=== PATIENT | male | born 1960 | race Caucasian/White ===

== ENCOUNTER → 2024-10-31 | Outpatient (CLI) | payer BC, MEDICARE, SELFPAY ==
[2024-10-31 16:16] LABS: Absolute Lymphocyte Count 1.81 X10^3/uL (0.83-4.51); Absolute Neutrophil Count 3.4 X10^3/uL (2.0-7.7); Basophil# 0.02 X10^3/uL; Basophil% 0.3 % (0-1); Eosinophils% 6.5 % (0-5); Hematocrit 47.7 % (40-54); Hemoglobin 16.2 g/dL (13.0-16.5); Lymphocyte # 1.81 X10^3/ul (0.83-4.51); Lymphocyte % 29.4 % (19-41); Mean Corpuscular Hgb 31.8 pg (27.0-32.0); Mean Corpuscular Volume 93.5 fL (80-94); Mean Platelet Vol. 10.7 fl (6.2-12.0); Monocyte# 0.56 X10^3/uL; Monocyte% 9.1 % (0-10); NRBC Flagged by Analyzer 0 % (0-5); Neutrophil # 3.36 X10^3/uL (2.7-7.7); Neutrophil % 54.5 % (47-70); Platelet Count 199 K/mm3 (150-450); RBC Distribution Width CV 12.6 % (11.6-14.6); RBC Distribution Width SD 43.8 fl (35.1-43.9); White Blood Count 6.2 K/mm3 (4.4-11.0)
[2024-10-31 17:03] LABS: ALB/GLOB Ratio 1.1 RATIO (0.9-2.4); AST(SGOT) 25 U/L (15-37); Alanine Aminotransfer ALT/SGPT 27 U/L (16-61); Albumin, Serum 3.9 g/dL (3.2-5.0); Alkaline Phosphatase 86 U/L (45-117); Anion Gap 6 (5-15); BUN 19 mg/dL (7-18); BUN/Creat Ratio 21.9 RATIO (10-20); Calcium,Total 9.3 mg/dL (8.5-10.1); Chloride 104 mmol/L (98-107); Creatinine, Serum 0.87 mg/dL (0.70-1.30); EST Glomerular Filtration Rate 94 mL/min (>60); Est Glom Filt Rate - Afr Amer 113 mL/min (>60); Globulin 3.7 g/dL (2.2-4.2); Glucose 91 mg/dL (74-106); Protein, Total 7.6 g/dL (6.4-8.2); Sodium Level 138 mmol/L (136-145)
[2024-10-31 17:33] LABS: Hepatitis C Antibody Non-Reactive (Nonreactive); Vitamin D,25 Hydroxy 41.8 ng/mL
[2024-10-31 19:36] LABS: Hemoglobin A1c 5.7 % (3.8-5.6)
[2024-11-01 11:05] LABS: Uric Acid 5.6 mg/dL (3.5-7.2)
== END | disposition home or self-care (01) ==
LOC: POLAB3 15:33
PROVIDERS: PCP Family Medicine Geriatric Medicine; Visit Provider Family Medicine Geriatric Medicine
DX: Z12.5 Encounter for screening for malignant neoplasm of prostate (principal); E78.5 Hyperlipidemia, unspecified; Z13.89 Encounter for screening for other disorder; E55.9 Vitamin D deficiency, unspecified; M10.9 Gout, unspecified
CPT/HCPCS: 36415; 80053; 82306; 83036; 84153; 84443; 84550; 85025; 86803; G0103

== ENCOUNTER → 2024-11-05 | Outpatient (CLI) | payer MEDICARE, SELFPAY ==
--- NOTE | 2024-11-05 13:35 | CPS ---
Order was for pre and post bronchodilator
== END | disposition home or self-care (01) ==
LOC: PSN 12:57
PROVIDERS: PCP Family Medicine Geriatric Medicine; Referring Provider Family Medicine Geriatric Medicine; Visit Provider Family Medicine Geriatric Medicine
DX: R06.02 Shortness of breath (principal); F12.20 Cannabis dependence, uncomplicated
CPT/HCPCS: 94060

== ENCOUNTER 2024-11-21 14:04 | Outpatient (CLI) | payer MEDICARE, SELFPAY ==
--- NOTE | 2024-11-21 14:10 | CT_ITS ---
PROCEDURE: LOW DOSE CT LUNG SCREENING REASON FOR EXAM: History of 15 Bong loads of THC. TECHNIQUE: Low Dose CT Lung Screening without contrast COMPARISON: None. FINDINGS: PULMONARY NODULES: (Only nodules >6mm are reported) Nodules described below are on series 1 unless otherwise specified. Pulmonary Nodules: No concerning pulmonary nodules. Hardware:None Lymph Nodes:No mediastinal hilar or axillary lymphadenopathy. Heart and Vasculature:Normal heart size. No pericardial effusion.Thoracic aorta and pulmonary arteries have normal contours; noncontrast technique limits evaluation. Coronary Artery Calcifications: Present Lungs and Airways: The lungs are normally expanded and clear. Pleura:No pleural effusion. No pneumothorax. Upper Abdomen:Visualized portions of the upper abdominal viscera are unremarkable. Bones:Degenerative changes of the thoracic spine. CT/Low Dose CT Lung Screening IMPRESSION: 1. BASED ON THE ACR LUNG RADS FOR THE MOST SUSPICIOUS NODULE (IF ANY) DESCRIBE D IN THIS REPORT, THE OVERALL LUNG RADS SCORE IS 1. 1 - NEGATIVE. RECOMMEND 12-MONTH SCREENING LDCT.. 2. SMOKING CESSATION COUNSELING IS RECOMMENDED IF THE PATIENT IS STILL SMOKING . 3. OTHER SIGNIFICANT FINDINGSNone. One or more dose reduction techniques were used (e.g., Automated exposure contr ol, adjustment of the mA and/or kV according to patient size, use of iterative reconstruction technique). The following information is provided for reference:Lung-RADS 202 Assessment C ategories. Additional information involving Lung-RADS is available at www.acr.org. 0-INCOMPLETE 1-NEGATIVE:No nodules or definitely benign nodules. Complete, central, popcorn , or centric ring calcifications OR fat containing 2-BENIGN APPEARANCE (based on imaging features or indolent behavior). Juxtaple ural nodule: < 10mm AND solid; smooth margins; oval, entiform, or triangular shape Solid nodule: <6mm at baseline or new< 4mm Part solid Nodule: < 6mm total mean diameter at baseline Nonsolid nodule:(GGN) < 30mm OR >=30mm stable or slowly growing Airway nodule, subsegmental at baseline, new, or stable Category 3 nodule stabl e or decreased in size at 6-month follow-up CT or Category 3 or 4A nodules that resolve on follow-up OR category 4B findings prov en to be benign following diagnotic work up. 3 - Probably Benign (Based on imaging features or behavior) Solid Nodule: >= 6 to <8mm at baseline OR new 4 to <6mm Part-solid nodule: >= 6mm toal mean diam. with solid component <6mm at baseline OR new < 6mm total mean diam. Non-solid nodule: GGN >= 30mm at baseline or new Atypical pulmonary cyst: Growing cystic component (mean diam.) of thick-walled cyst Category 4A nodule stable or decreased in size at 3-month follow-up CT (excl.ai rway). 4A - Suspicious Solid nodule: >=8 to < 15mm at baseline OR growing < 8mm OR new 6 to < 8mm Part solid nodule: >= 6mm total mean diam. w/ solid component >=6mm to < 8mm at baseline OR new or growing < 4mm solid component Airway nodule, segmental or more proximal at baseline or new Atypical pulmonary cyst: Thick-walled OR multilocular at baseline OR becomes mu ltilocular 4B - Very Suspicious Airway nodule, segmental or more proximal, and stable or growing Solid nodule: >= 15mm at baseline OR new or growing >= 8mm Part solid nodule: Solid component >= 8mm OR new or growing >= 4mm solid compon ent Atypical pulmonary cyst: Thick-walled with growing wall thickness/nodularity OR Growing multilocular (mean diam.) OR Multilocular with increased loculation or new/increased opacity Slow-growing solid or part solid nodule w/ growth over multiple screening exams 4X - Very Suspicious Category 3 or 4 nodules with additional features that increase the suspicion fo r lung cancer. S - Clinically Significant or potentially significant findings (non-lung cancer ) 3. OTHER SIGNIFICANT FINDINGSNone. One or more dose reduction techniques were used (e.g., Automated exposure contr ol, adjustment of the mA and/or kV according to patient size, use of iterative reconstruction technique). The following information is provided for reference:Lung-RADS 2021 Assessment C ategories. Additional information involving Lung-RADS is available at www.acr.org. 0-INCOMPLETE 1-NEGATIVE:No nodules or definitely benign nodules. Complete, central, popcorn , or centric ring calcifications OR fat containing 2-BENIGN APPEARANCE (based on imaging features or indolent behavior). Juxtaple ural nodule: < 10mm AND solid; smooth margins; oval, entiform, or triangular shape Solid nodule: <6mm at baseline or new< 4mm Part solid Nodule: < 6mm total mean diameter at baseline Nonsolid nodule:(GGN) < 30mm OR >=30mm stable or slowly growing Airway nodule, subsegmental at baseline, new, or stable Category 3 nodule stabl e or decreased in size at 6-month follow-up CT or Category 3 or 4A nodules that resolve on follow-up OR category 4B findings prov en to be benign following diagnotic work up. 3 - Probably Benign (Based on imaging features or behavior) Solid Nodule: >= 6 to <8mm at baseline OR new 4 to <6mm Part-solid nodule: >= 6mm toal mean diam. with solid component <6mm at baseline OR new < 6mm total mean diam. Non-solid nodule: GGN >= 30mm at baseline or new Atypical pulmonary cyst: Growing cystic component (mean diam.) of thick-walled cyst Category 4A nodule stable or decreased in size at 3-month follow-up CT (excl.ai rway). 4A - Suspicious Solid nodule: >=8 to < 15mm at baseline OR growing < 8mm OR new 6 to < 8mm Part solid nodule: >= 6mm total mean diam. w/ solid component >=6mm to < 8mm at baseline OR new or growing < 4mm solid component Airway nodule, segmental or more proximal at baseline or new Atypical pulmonary cyst: Thick-walled OR multilocular at baseline OR becomes mu ltilocular 4B - Very Suspicious Airway nodule, segmental or more proximal, and stable or growing Solid nodule: >= 15mm at baseline OR new or growing >= 8mm Part solid nodule: Solid component >= 8mm OR new or growing >= 4mm solid compon ent Atypical pulmonary cyst: Thick-walled with growing wall thickness/nodularity OR Growing multilocular (mean diam.) OR Multilocular with increased loculation or new/increased opacity Slow-growing solid or part solid nodule w/ growth over multiple screening exams 4X - Very Suspicious Category 3 or 4 nodules with additional features that increase the suspicion fo r lung cancer. S - Clinically Significant or potentially significant findings (non-lung cancer ) Reading Location: [id number]
== END 2024-11-21 23:59 | disposition home or self-care (01) ==
LOC: CT 14:07
PROVIDERS: PCP Family Medicine Geriatric Medicine; Referring Provider Family Medicine Geriatric Medicine; Visit Provider Family Medicine Geriatric Medicine
DX: F12.20 Cannabis dependence, uncomplicated (principal); I71.40 Abdominal aortic aneurysm, without rupture, unspecified
CPT/HCPCS: 71271

== ENCOUNTER 2024-12-03 08:58 | Outpatient (CLI) | payer MEDICARE, SELFPAY ==
--- NOTE | 2024-12-03 09:02 | AAAS_ITS ---
Reason For Study Reason For Study: AAA Aorta Measurements Aorta Doppler Measurements Proximal aorta measures2.07x2.07cm. in cross-sectional axis.Peak systolic flow velocities within the proximal aorta Proximal aorta measures1.85cm. in longitudinal axis. measure 92.2 cm/sec. Mid aorta measures2.81x2.81cm. in cross-sectional axis. Peak systolic flow velocities within the mid aorta measure Mid aorta measures2.77cm. in longitudinal axis. 171.4 cm/sec. Distal aorta measures3.50x3.50cm. in cross-sectional axis. Peak systolic flow velocities within the distal aorta Distal aorta measures3.25cm. in longitudinal axis. measure 20.0 cm/sec. Left Iliac Artery Left iliac artery measures 1.66 cm. in the longitudinal axis. Left iliac artery measures 1.78x1.88 cm. in the cross- sectional axis. Peak systolic velocity in the left iliac artery measures 51.6 cm/sec. Right Iliac Artery Right iliac artery measures 1.88 cm. in the longitudinal axis. Right iliac artery measures 2.14x2.14 cm. in the cross- sectional axis. Peak systolic velocity in the right iliac artery measures 64.8 cm/sec. Procedure Aorta IVC Iliac vasculature or bypass grafts 63410. Exam performed in department. VL/AAA Screening Interpretation Summary Aorta patent, 3.5 cm aneurysm present Right iliac artery patent, 2.14 cm aneurysm present Left iliac artery patent, 1.88 cm aneurysm present Ordering Physician: Larry Morel Chi Referring Physician: Larry Morel Chi Performed By: Carter Mendez RVT and Student
== END 2024-12-03 23:59 | disposition home or self-care (01) ==
LOC: CVS 08:59
PROVIDERS: PCP Family Medicine Geriatric Medicine; Referring Provider Family Medicine Geriatric Medicine; Visit Provider Family Medicine Geriatric Medicine
DX: I71.40 Abdominal aortic aneurysm, without rupture, unspecified (principal); F12.20 Cannabis dependence, uncomplicated
CPT/HCPCS: 76706

== ENCOUNTER 2025-03-26 12:50 | Day surgery (SDC) | payer MEDICARE, SELFPAY ==
[2025-03-26] VITALS (8 sets, daily range): BP systolic 110–136; BP diastolic 70–98; PULSE 52–74; RESP 16–18; TEMP 36.2–36.3; O2SAT 96–98; BMI 34.0
--- NOTE | 2025-03-26 13:11 | PCM.HP.STD ---
[facility] - General General Date of Admission: 03/26/25 Date of Service: 03/26/25 Chief Complaint: Screening colonoscopy HPI Narrative HOMER NIX, is a 65 M who presents today for screening colonoscopy. He had aortic duplex screening on 12/03/24 which demonstrated infrarenal AAA 3.5 cm, right iliac artery aneurysm 2.14 cm, and left iliac artery aneurysm 1.88cm. He denies any new/persistent abdominal, pelvic, groin, back, flank, or chest pain. He denies any claudication, nocturnal/rest pain in the lower extremities, or nonhealing leg ulcerations. He had a colonoscopy approximately 3 years ago for history of adenomatous polyps. He takes aspirin on a daily basis. His last dose was approximately 7 days ago. [facility] Medical History Wears glasses Arthritis High cholesterol Marijuana use History of edema Non-smoker Iliac artery aneurysm AAA (abdominal aortic aneurysm) Gout Tetrahydrocannabinol (THC) use disorder, moderate, dependence Hyperlipidemia Type 2 diabetes mellitus Hx of colonic polyp Home Medications ?Medication ?Instructions ?Recorded ?Last Taken ?Type RSVPreF3 antigen-AS01E 0.5 ml IM ONCE 01/03/25 Unknown History adjuvant(PF) 120 mcg/0.5 mL IM suspension, kit (Arexvy (PF)) amoxicillin 875 mg-potassium 1 tab PO Q12H 01/03/25 Unknown History clavulanate 125 mg tablet phentermine 37.5 mg capsule 37.5 mg PO QDAY 01/03/25 Unknown History pneumo 21-grant conj-dip crm(PF) 0.5 0.5 ml IM ONCE 01/03/25 Unknown History mL IM syringe (Capvaxive) aspirin 81 mg tablet 81 mg PO DAILY 03/21/25 03/19/25 History multivitamin (Daily Multi-Vitamin 1 tab PO DAILY 03/21/25 Unknown History tablet) Allergy/AdvReac Type Severity Reaction Status Date / Time No Known Allergies Allergy Verified 03/26/25 13:09 Family History Mother Breast cancer Diverticulitis Surgical History History of lateral meniscus repair of left knee History of ankle surgery History of oral surgery Hx of colonoscopy Social History household members: family current occupational status: retired Smoking Status: Never smoker alcohol intake: former substance use type: marijuana ROS Constitutional Constitutional: Denies fatigue, fever(s), poor appetite, weight gain or weight loss Gastrointestinal Gastrointestinal: Denies belching, bloating, change in bowel habits, change in stool character, chewing difficulty, coffee ground emesis, constipation, cramping, diarrhea, dyspepsia, dysphagia, early satiety, excessive flatus, fecal incontinence, heartburn, hematemesis, hematochezia, hemorrhoids, loose stools, melena, nausea, odynophagia, rectal bleeding, tenesmus, vomiting or weight changes Physical Exam Const alert, oriented x3, no apparent distress and healthy appearing General Appearance: cooperative GI normal to inspection, nondistended, normoactive bowel sounds, soft to palpation, non-tender and non-distended Percussion: normal to percussion Rectal Exam: deferred Assessment & Plan Assessment/Plan (1) Encounter for screening for malignant neoplasm of colon: PLAN: 65-year-old comes in for surveillance colonoscopy. He will undergo colonoscopy today. He was explained alternatives, risk, benefits including not withstanding bleeding, infection, sepsis, perforation, need for brain surgery . He will have an ASA of 3.
[2025-03-26] MEDS: Lactated Ringers 1,000 ML 15 ML IV (13:21)
--- NOTE | 2025-03-26 13:34 | PRE.ANES_ITS ---
ASA Classification* ASA Classification ASA Classification: 3 Assessment & Plan Anesthesia* Anesthesia Assessment Anesthesia Assessment: Discussed sedation and/or anesthesia options, risks, benefits, and alternatives with patient/parents/legal guardian/POA. Questions invited. The patient/parents/legal guardian/POA seems to understand and agrees to proceed with anesthesia plan. Reviewed the physical assessment, medical history, allergy history and patient home medications list prior to surgery/procedure/anesthetic and documented any changes. Performed airway and anesthesia risk assessments. Anesthesia Type Anesthesia Type: MAC History Source History Obtained from:: Patient and Chart Anesthesia Focused Assessment* Temperature: 97.1 F Pulse Rate: 61 Blood Pressure: 136/82 Respiratory Rate: 18 Pulse Ox: 96 Oxygen Delivery Method: Room Air Airway Assessment Mouth opens: >3 cm Mallampati Score: I Teeth Condition: Intact and Implants (all intact) Neck Range of motion (ROM): Full ROM Labs Anesthesia Preop lab: CBC WBC 6.2 K/mm3 (4.4-11.0) 10/31/24 15:10/31/24 RBC 5.10 M/mm3 (4.6-6.2) 10/31/24 15:10/31/24 Hgb 16.2 g/dL (13.0-16.5) 10/31/24 15:10/31/24 Hct 47.7 % (40-54) 10/31/24 15:33 10/31/24 Plt Count 199 K/mm3 (150-450) 10/31/24 15:10/31/24 CHEMISTRY Potassium 4.0 mmol/L (3.5-5.1) 10/31/24 15:10/31/24 Sodium 138 mmol/L (136-145) 10/31/24 15:33 10/31/24 BUN 19 mg/dL (7-18) H 10/31/24 15:10/31/24 Creatinine 0.87 mg/dL (0.70-1.30) 10/31/24 15:10/31/24 Glucose 91 mg/dL (74-106) 10/31/24 15:33 10/31/24 TSH 2.480 uIU/mL (0.358-3.740) 10/31/24 15:10/04 COAG Pre-Assessment Diagnosis/Proposed Procedure Planned Operative Procedure(s): CSCOPE Anesthesia History Anesthesia History - charter pilot: Anesthesia History - charter pilot Hx Hospitalization No 03/21/25 15:12 Any Problems With Anesthesia No 03/21/25 15:12 Cholinesterase deficiency No 03/21/25 15:12 You/Your Family Experience No 03/21/25 15:12 fever (hyperthermia) with Relationship Recent Exposure to Contagious No 03/26/25 13:10 Disease Does patient have nerve No 03/21/25 15:12 stimulator Patient instructed to have device shut off --Does patient have Pacemaker No 03/26/25 13:10 or ICD? When Was Last Pacemaker Check QUESTION #4 FULL TEXT: You/Your Family Experience fever (hyperthermia) with Anesthesia Last Oral Intake Last Oral intake: Last Oral Intake NPO since 10:30 03/26/25 13:10 Meds taken in AM with sips of No 03/26/25 13:10 water? Meds patient instructed to take am of surgery PONV PONV - charter pilot: PONV - charter pilot Female No 03/21/25 15:12 HX of Motion Sickness No 03/21/25 15:12 HX of N/V After Surgery No 03/21/25 15:12 Non-Smoker Yes 03/21/25 15:12 Duration of Surgery greater No 03/21/25 15:12 than 60 minutes Number of Risk Factors 1 03/21/25 15:12 PONV Score Low Risk 03/21/25 15:12 Height & Weight Height & Weight: Anesthesia: Height & Weight Height 6 ft 1 in 03/26/25 13:10 Weight: 117 kg 03/26/25 13:10 Body Mass Index (BMI) 34.0 03/26/25 13:10 Respiratory Assessment Respiratory Assessment - charter pilot: Respiratory Tract Infection Hx - charter pilot Hx Respiratory Tract Infection No 03/21/25 15:12 STOP Sleep Apnea STOP Sleep Apnea - charter pilot: STOP Sleep Apnea - charter pilot Hx Hypertension No 03/21/25 15:12 Hx Sleep Apnea Yes 03/21/25 15:12 CPAP Yes 03/21/25 15:12 BIPAP No 03/21/25 15:12 Do you snore loudly (louder than talking or can be heard Do you often feel tired/ fatigued/ sleepy during daytime? Has anyone observed you stop breathing during sleep? STOP Results Positive 03/21/25 15:12 QUESTION #5 FULL TEXT : Do you snore loudly (louder than talking or can be heard through closed doors)? 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 Specify any problems Hx of Preganancy in last 3 N/A 03/21/25 15:12 Months Nurse Filling Out Transfusion NBUCHER 03/21/25 15:12 & Questions: Date: 03/21/25 03/21/25 15:12 Time: 15:13 03/21/25 15:12 Patient unable to answer at this time (ie. confused, unrespo /Reproduction History /Reproductive History - charter pilot: /Reproductive Hx- charter pilot Hx Now No 03/21/25 15:12 Gestational Age (in weeks): EDC: Hx Hx Para Hx Section SAB No 03/21/25 15:12 Active Medications Active Medications: Current Medications Generic Name Dose Route Start Last Admin Trade Name Freq PRN Reason Stop Dose Admin Lactated Ringer's 1,000 mls @ 15 mls/hr 03/26/25 13:00 03/26/25 13:21 IV 15 mls/hr .Q48H SRINIVAS Administration PFSH Medical History Wears glasses Arthritis High cholesterol Marijuana use History of edema Non-smoker Iliac artery aneurysm AAA (abdominal aortic aneurysm) Gout Tetrahydrocannabinol (THC) use disorder, moderate, dependence Hyperlipidemia Type 2 diabetes mellitus Hx of colonic polyp Home Medications ?Medication ?Instructions ?Recorded ?Last Taken ?Type RSVPreF3 antigen-AS01E 0.5 ml IM ONCE 01/03/25 Unkn own History adjuvant(PF) 120 mcg/0.5 mL IM suspension, kit (Arexvy (PF)) amoxicillin 875 mg-potassium 1 tab PO Q12H 01/03/25 Un known History clavulanate 125 mg tablet phentermine 37.5 mg capsule 37.5 mg PO QDAY 01/03/25 U nknown History pneumo 21-grant conj-dip crm(PF) 0.5 0.5 ml IM ONCE 12/25 Unknown History mL IM syringe (Capvaxive) aspirin 81 mg tablet 81 mg PO DAILY 03/21/2503/03 History multivitamin (Daily Multi-Vitamin 1 tab PO DAILY 03/21 Unknown History tablet) Allergy/AdvReac Type Severity Reaction Status Date / Time No Known Allergies Allergy Verified 03/26/25 13:09 Family History Mother Breast cancer Diverticulitis Surgical History History of lateral meniscus repair of left knee History of ankle surgery History of oral surgery Hx of colonoscopy Social History household members: family current occupational status: retired Smoking Status: Never smoker alcohol intake: former substance use type: marijuana Review of Systems (Anesthesia) ROS Narrative System reviewed and no additional complaints, except as documented.
[2025-03-26 13:45] LABS: Bedside Glucose 102 mg/dL (74-106)
--- NOTE | 2025-03-26 13:45 | COLBX_PTH ---
PATIENT: HOMER NIX LOC: EN U#:[id number] AGE/SX: 65/M ROOM: RE03/26/[address]: Dr. Vasyl Ventura DO : 1960 BED: DIS: 03/26/2025 SPEC #: [id number] RECD: 03/26/25 16:03 STATUS: NOAH EDA #: [id number] FANI: 03/26/25 13:[address]: Vasyl Ventura DEPT: SURGICAL PATHOLOGY RECD BY: Brain Solomon ENTERED: 03/27/25 09:30 SP TYPE: COLON BX HÉCTOR DR: Dr. Larry Morel MD Tissues: A - Sigmoid colon biopsy Procedures: Surgery Specimen Level IV HEADER OPERATION: Colonoscopy PRE-OP DIAGNOSIS: Encounter for screening for malignant neoplasm of colon TISSUE SUBMITTED: A- Sigmoid polyp biopsy MICROSCOPIC DIAGNOSIS A. Sigmoid, polyp, colon, biopsy: - Hyperplastic polyp. MICROSCOPIC DESCRIPTION Slides are reviewed. GROSS DESCRIPTION A. Received in fixative is one container labeled with the patient's name and designated Sigmoid polyp biopsy. The specimen consists of multiple irregular fragments of light beckwith soft tissue that in aggregate measure 0.2 to 0.3 cm. The specimen is totally submitted in one cassette. EMILY/ 03/27/2025 CPT:63872
--- NOTE | 2025-03-26 14:33 | OP.COLON_ITS ---
Patient Name: Silvio Lewis Procedure Date: 03/26/2025 2:03 PM Date of : 1960 Age: 65 Procedure: Colonoscopy Indications: High risk colon cancer surveillance: Personal history of colonic polyps Providers: Vasyl Ventura DO Referring MD: Larry Morel MD Medicines: Monitored Anesthesia Care Patient Profile: This is a 65 year old male. Refer to note in patient chart for documentation of history and physical. Last Colonoscopy: more than 3 years ago. Complications: No immediate complications. Procedure: Pre-Anesthesia Assessment: - Prior to the procedure, a History and Physical was performed, and patient medications and allergies were reviewed. The patient is competent. The risks and benefits of the procedure and the sedation options and risks were discussed with the patient. All questions were answered and informed consent was obtained. Patient identification and proposed procedure were verified in the pre-procedure area. Mental Status Examination: alert and oriented. Airway Examination: normal oropharyngeal airway and neck mobility. Respiratory Examination: clear to auscultation. CV Examination: normal. Prophylactic Antibiotics: The patient does not require prophylactic antibiotics. Prior Anticoagulants: The patient has taken no anticoagulant or antiplatelet agents except for NSAID medication. ASA Grade Assessment: II - A patient with mild systemic disease. After reviewing the risks and benefits, the patient was deemed in satisfactory condition to undergo the procedure. The anesthesia plan was to use monitored anesthesia care (MAC). Immediately prior to administration of medications, the patient was re-assessed for adequacy to receive sedatives. The heart rate, respiratory rate, oxygen saturations, blood pressure, adequacy of pulmonary ventilation, and response to care were monitored throughout the procedure. The physical status of the patient was re-assessed after the procedure. After I obtained informed consent, the scope was passed under direct vision. Throughout the procedure, the patient's blood pressure, pulse, and oxygen saturations were monitored continuously. The Colonoscope was introduced through the anus and advanced to the cecum, identified by appendiceal orifice and ileocecal valve. The colonoscopy was performed without difficulty. The patient tolerated the procedure well. The quality of the bowel preparation was adequate. The ileocecal valve, appendiceal orifice, and rectum were photographed. Scope In: 2:12:25 PM Scope Withdrawal Time 0 hours 12 minutes 46 seconds Scope Out: 2:29:47 PM Total Procedure Duration Time 0 hours 17 minutes 22 seconds Findings: The perianal and digital rectal examinations were normal. Three sessile polyps were found in the sigmoid colon. The polyps were 6 mm in size. These polyps were removed with a jumbo cold forceps. Resection and retrieval were complete. Verification of patient identification for the specimen was done. Estimated blood loss was minimal. Multiple small and large-mouthed diverticula were found in the recto-sigmoid colon and sigmoid colon. The exam was otherwise without abnormality on direct and retroflexion views. Impression: - Three 6 mm polyps in the sigmoid colon, removed with a jumbo cold forceps. Resected and retrieved. - Diverticulosis in the recto-sigmoid colon and in the sigmoid colon. - The examination was otherwise normal on direct and retroflexion views. Recommendation: - Discharge patient to home. - Resume previous diet. - Continue present medications. - Await pathology results. - Repeat colonoscopy in 5 years for surveillance. Procedure Code(s): --- Professional --- 39686, Colonoscopy, flexible; with biopsy, single or multiple CPT copyright 2021 [employer]. All rights reserved. The codes documented in this report are preliminary and upon pool technician review may be revised to meet current compliance requirements. Vsayl Ventura DO 03/26/2025 2:33:21 PM This report has been signed electronically. Number of Addenda: 0 Note Initiated On: 03/26/2025 2:03 PM
--- NOTE | 2025-03-26 14:33 | OP.CCLET_ITS ---
03/26/2025 Larry Morel MD [address] [place] [address] Re : Colonoscopy procedure for Silvio Lewis Dear Dr. Morel This procedure was performed on Wednesday, March 26, 2025. My impressions and recommendations are as follows: Impressions : - Three 6 mm polyps in the sigmoid colon, removed with a jumbo cold forceps. Resected and retrieved. - Diverticulosis in the recto-sigmoid colon and in the sigmoid colon. - The examination was otherwise normal on direct and retroflexion views. Recommendations : - Discharge patient to home. - Resume previous diet. - Continue present medications. - Await pathology results. - Repeat colonoscopy in 5 years for surveillance. My findings are described in the full procedure note, which is enclosed. If I can be of further assistance, please feel free to contact me at . Sincerely, Vasyl Friend, 03/26/2025 2:33:21 PM This report has been signed electronically.
--- NOTE | 2025-03-26 14:40 | PCM.POST.ANE ---
Anesthesia: Postop Eval I Current Vital Signs Temperature: 97.3 F Pulse Rate: 57 Blood Pressure: 110/70 Respiratory Rate: 16 Pulse Ox: 96 Oxygen Delivery Method: Room Air Assessment Airway patent: Yes Spontaneous unlabored respirations: Yes Mental status: Asleep nausea: No Vomiting: No Anesthesia Complication: No Fluid Hydration Crystalloid volume administer (ml): 600 Total IV fluid infused: 600 Progress Note Anesthesia document: Postop Eval 1 completed: Yes
--- NOTE | 2025-03-26 17:08 | PCM.POSTANE2 ---
Anesthesia Postop Eval I Sum Postop Eval Completion status Anesthesia document: Postop Eval 1 completed: Yes Anesthesia Postop Eval I Summary Anesthesia Postop Eval I Summary: Anesthesia Postop Eval I: Assessment Summary Airway patent Yes 03/26/25 14:41 [email or web address] Spontaneous unlabored Yes 03/26/25 14:41 [email or web address] respirations Mental status Asleep 03/26/25 14:41 [email or web address] nausea No 03/26/25 14:41 [email or web address] Vomiting No 03/26/25 14:41 [email or web address] Anesthesia Postop Eval I: Fluid Summary Crystalloid volume administer 600 03/26/25 14:41 [email or web address] (ml) Colloids volume administered ( ml) Blood Product volume administered (ml) Total IV fluid infused 600 03/26/25 14:41 [email or web address] Anesthesia Postop Eval I: Summary Notes Anesthesia Complication No 03/26/25 14:41 [email or web address] Anesthesia Complication Comment: Post-operative progress note Anesthesia: Postop Eval II Evaluation Mental status: Awake and Calm Pain Level: 0 nausea: No Vomiting: No Complications Anesthesia Complication: No
== END 2025-03-26 16:28 | disposition home or self-care (01) ==
LOC: EN 12:51 → AC 12:52
PROVIDERS: PCP Family Medicine Geriatric Medicine; Referring Provider Family Medicine Geriatric Medicine; Visit Provider Internal Medicine Gastroenterology
PROC: 0DJD8ZZ Inspection of Lower Intestinal Tract, Via Natural or Artificial Opening Endoscopic (ICD-10-PCS; CPT 45378; principal; 2025-03-26 13:40)
DX: Z12.11 Encounter for screening for malignant neoplasm of colon (principal); E11.9 Type 2 diabetes mellitus without complications; K57.30 Diverticulosis of large intestine without perforation or abscess without bleeding; Z86.0100 Personal history of colon polyps, unspecified; E78.00 Pure hypercholesterolemia, unspecified; Z79.82 Long term (current) use of aspirin; K63.5 Polyp of colon
CPT/HCPCS: 45380; 82962; 88305; J2405

== ENCOUNTER → 2025-06-05 | Outpatient (CLI) | payer MEDICARE, SELFPAY ==
[2025-06-05 14:32] LABS: Hematocrit 45.2 % (40-54); Hemoglobin 15.3 g/dL (13.0-16.5); Immature Granulocytes Count 0.020 X10^3/uL (0.0-0.0); Mean Corp Hgb Conc 33.8 g/dL (32-36); Mean Corpuscular Volume 94.6 fL (80-94); Mean Platelet Vol. 10.4 fl (6.2-12.0); NRBC Flagged by Analyzer 0 % (0-5); Platelet Count 180 K/mm3 (150-450); RBC Distribution Width CV 12.6 % (11.6-14.6); RBC Distribution Width SD 43.7 fl (35.1-43.9); Red Blood Count 4.78 M/mm3 (4.6-6.2); White Blood Count 5.8 K/mm3 (4.4-11.0)
[2025-06-05 16:17] LABS: BUN 18 mg/dL (4-19); Glucose 119 mg/dL (70-99)
[2025-06-05 16:18] LABS: AST(SGOT) 27 U/L (<=37); Alanine Aminotransfer ALT/SGPT 20 U/L (<=46); Albumin, Serum 4.1 g/dL (3.4-4.8); Alkaline Phosphatase 74 U/L (40-129); Anion Gap 12 (5-15); BUN/Creat Ratio 21.9 RATIO (10-20); Calcium,Total 9.3 mg/dL (7.6-11.0); Carbon Dioxide 24.6 mmol/L (21.0-32.0); Chloride 105 mmol/L (98-108); Globulin 2.8 g/dL (2.2-4.2); Potassium 4.1 mmol/L (3.3-5.1); Vitamin D,25 Hydroxy 29.1 ng/mL (30-100)
[2025-06-05 22:11] LABS: Xtra Tube Kwok EXTRA TUBE
== END | disposition home or self-care (01) ==
LOC: POLAB3 14:10
PROVIDERS: PCP Family Medicine Geriatric Medicine; Visit Provider Family Medicine Geriatric Medicine
DX: E03.9 Hypothyroidism, unspecified (principal); R53.83 Other fatigue; E55.9 Vitamin D deficiency, unspecified
CPT/HCPCS: 36415; 80053; 82306; 84443; 85025

== ENCOUNTER → 2025-07-26 | Outpatient (CLI) | payer MEDICARE, SELFPAY ==
--- NOTE | 2025-07-24 14:21 | LES_PTH ---
PATIENT: HOMER NIX LOC: [facility] U#:[id number] AGE/SX: 65/M ROOM: RE07/26/[address]: Dr. Fili Barahona MD : 1960 BED: DIS: 07/26/2025 SPEC #: [id number] RECD: 07/25/25 17:26 STATUS: NOAH REAllen #: [id number] FANI: 07/24/25 14:[address]: Fili Barahona DEPT: SURGICAL PATHOLOGY RECD BY: Brain Solomon ENTERED: 07/26/25 10:18 SP TYPE: Lesion OTHR DR: Dr. Larry Morel MD Tissues: A - Skin of nose, NOS Procedures: Surgery Specimen Level IV HEADER OPERATION: Biopsy PRE-OP DIAGNOSIS: Lesion of nose TISSUE SUBMITTED: A- Lesion of nose MICROSCOPIC DIAGNOSIS A. Skin, nose, biopsy: - Basal cell carcinoma. MICROSCOPIC DESCRIPTION Slides are reviewed. GROSS DESCRIPTION A. Received in formalin labeled with the patient's name and date of is a 0.4 x 0.2 x 0.1 cm beckwith to light brown, somewhat granular, irregular fragment of apparent skin. A definitive resection margin is not grossly appreciated. Entirely submitted in 1 cassette. [place] 07/26/2025PT:[id number]
--- OUTSIDE RECORDS SUMMARY | 2025-07-26 06:57 | XMS RPT_ITS | CCD ---
Author Organization [facility] Care Team Providers Care Gospel Singer Name Role Phone Adriel REYES, Dr. Larry Comer Primary Care Provider Adriel REYES, Dr. Larry Comer Attending Provider Adriel REYES, Dr. Larry Comer Referring Provider Radha Barton Attending Provider Unavailable Lucio REYES, Dr. Adams Attending Provider 1([facility])[phone] Adriel REYES, Dr. Larry Comer Primary Care Provider Adriel REYES, Dr. Larry Comer Attending Provider Adriel REYES, Dr. Larry Comer Referring Provider Irlanda Rodriguez Attending Provider 1([facility])[phone] Dr[address] Vasyl Ventura DO Attending Provider Dr. Vasyl Ventura DO Other Provider Adriel REYES, Dr. Larry Comer Primary Care Provider Adriel REYES, Dr. Larry Comer Referring Provider Adriel REYES, Dr. Larry Comer Attending Provider Adriel, Larry Chi Primary Care Unavailable Bryan Valdes Attending Unavailable Adriel, Larry Chi Referring Unavailable Joshua Tobin Attending Unavailable Adriel, Larry Chi Primary Care Unavailable Adriel, Larry Chi Primary Care Unavailable Vasyl Ventura Consulting Unavailable Vasyl Ventura Attending Unavailable Adriel, Larry Chi Referring Unavailable Adriel, Larry Chi Primary Care Unavailable Adriel, Larry Chi Attending Unavailable Adriel, Larry Chi Attending Unavailable Adriel, Larry Chi Primary Care Unavailable Adriel, Larry Chi Attending Unavailable Adriel, Larry Chi Attending Unavailable Adriel, Larry Chi Referring Unavailable Adriel, Larry Chi Primary Care Unavailable Adriel, Larry Chi Referring Unavailable Adriel, Larry Chi Primary Care Unavailable Adriel, Larry Chi Attending Unavailable Adriel, Larry Chi Referring Unavailable Adriel, Larry Chi Primary Care Unavailable Vasyl Ventura Attending Unavailable Adriel, Larry Chi Referring Unavailable Irlanda Rascon Attending Unavailable Adriel, Larry Chi Primary Care Unavailable Adriel, Larry Chi Primary Care Unavailable Radha Barton Attending Unavailable Medications Current Medications Medication Drug Class(es) Dates Sig (Normalized) Sig (Original) aspirin 81 mg oral tablet (2 sources) Platelet Aggregation Inhibitor, Nonsteroidal Anti-inflammatory Drug Start: 03-21-2025 take 1 tablet by mouth once daily Aspirin 81 mg tablet Active 81 mg PO DAILY March 21, 2025 12:00am Multivitamin (Daily Multi-Vitamin) tablet (2 sources) Start: 03-21-2025 Multivitamin (Daily Multi-Vitamin) tablet Active 1 {tbl} PO DAILY March 21, 2025 12:00am Completed/Discontinued Medications Medication Drug Class(es) Dates Sig (Normalized) Sig (Original) amoxicillin 875 mg / clavulanate 125 mg oral tablet (2 sources) Penicillin-class Antibacterial Start: 01-03-2025 Amoxicillin-Pot Clavulanate 875-125 mg tablet Discontinued 1 {tbl} PO Q12H January 03, 2025 12:00am phentermine hydrochloride 37.5 mg oral capsule (2 sources) Sympathomimetic Amine Anorectic Start: 01-03-2025 take 1 capsule by mouth once daily 30 minutes after breakfast Phentermine 37.5 mg capsule Discontinued 37.5 mg PO daily January 03, 2025 12:00am must administer 30 minutes before or 1-2 hours after breakfast Pneumo 21-Montse Conj-Dip Crm(Pf) (2 sources) Start: 01-03-2025 Pneumo 21-Montse Conj-Dip Crm(Pf) (Capvaxive) 0.5 mL syringe Discontinued 0.5 mL IM ONCE January 03, 2025 12:00am as a single dose Rsvpref3 Antigen-As01e (Pf) (Arexvy (Pf)) 120 mcg/0.5 mL suspension for reconstitution (2 sources) Start: 01-03-2025 inject 1 mL by intramuscular injection once Rsvpref3 Antigen-As01e (Pf) (Arexvy (Pf)) 120 mcg/0.5 mL suspension for reconstitution Discontinued 0.5 mL IM ONCE January 03, 2025 12:00am as a single dose Semaglutide (Weight Loss) (3 sources) Start: 11-08-2024 End: 01-04-2025 Semaglutide (Weight Loss) (Wegovy) 0.25 mg/0.5 mL pen injector Discontinued 0.25 mg SC EVERY WEEK November 08, 2024 1:00am January 04, 2025 1:48pm administer weeks 1 through 4 of therapy Start: 11-08-2024 Semaglutide (W eight Loss) (Wegovy) 0.25 mg/0.5 mL pen injector Active 0.25 mg SC EVERY WEEK November 08, 2024 1:00am administer weeks 1 through 4 of therapy Problems Active Problems Problem Classification Problem Date Documented Da te Episodic/Chronic Aortic; peripheral; and visceral artery aneurysms (9 sources) Aneurysm of infrarenal abdominal aorta ; Translations: [Infrarenal abdominal aortic aneurysm (AAA) without rupture] 01-04-2025 Chronic Other screening for suspected conditions (not mental disorders or infectious disease) (8 sources) Patient encounter status; Translations: [Encounter for screening for malignant neoplasm of colon] Onset: 11-20-2024 11-07-2024 Episodic Substance-related disorders (1 source) Cannabis dependence, uncomplicated; Translations: [Cannabis dependence, uncomplicated] Onset: 12-18-2024 Chronic Thyroid disorders (1 source) Hypothyroidism, unspecified; Translations: [Hypothyroidism, unspecified] Onset: 06-12-2025 Chronic Unclassified (1 source) Abdominal aortic aneurysm, without rupture, unspecified; Translations: [Abdominal aortic aneurysm, without rupture, unspecified] Onset: 01-24-2025 Past or Other Problems Problem Classification Problem Date Documented Da te Episodic/Chronic Other lower respiratory disease (1 source) Shortness of breath; Translations: [Shortness of breath] Onset: 12-05-2024 Episodic Results Test Name Value Interpretation Reference Range Facil y Absolute lymphocyte countOrd ered By: Larry Morel on 06-05-2025 Lymphocytes Auto (Unsp spec) [#/Vol] 1.76 10*3/uL 0.83-4.51 [facility] Absolute neutrophil countOrd ered By: Larry Morel on 06-05-2025 Neutrophils (Bld) [#/Vol] 3.1 10*3/uL 2.0-7.7 [facility] Anion gap in Serum or Plasma Ordered By: Larry Adriel on 06-05-2025 Anion gap [Moles/Vol] 12 mmol/L 5-15 [facility] Automated lymphocyte count a s percentage of total leukocytesOrdered By: Larry Adriel on 06-05-2025 Lymphocytes/100 WBC Auto (Unsp spec) 30.5 % - [facility] BUN/creatinine ratioOrdered By: Larry Morel on 06-05-2025 Urea nitrogen/Creatinine [Mass ratio] 21.9 mg/mg High 10- [facility] Basophil percentageOrdered B y: Larry Adriel on 06-05-2025 Basophils/100 WBC (Bld) 0.5 % 0-1 [facility] Bilirubin, totalOrdered By: Larry Morel on 06-05-2025 Bilirubin [Mass/Vol] 0.39 mg/dL 0.00-1.30 [facility] CBC W/Diff, Automatedon Absolute Lymph 1.76 X10 3/uL Normal 0.83-4.51 [facility] Comment on above: Performed By: #### L 506.1001, L500.4050, L100.0100, L501.9520 #### [facility] [address] [place], [address] Absolute Neut 3.1 X10 3/uL Normal 2.0-7.7 [facility] Comment on above: Performed By: #### L 506.1001, L500.4050, L100.0100, L501.9520 #### [facility] [address] [place], [address] Basophils/100 WBC (Bld) 0.5 % Normal 0-1 [facility] Comment on above: Performed By: #### L 506.1001, L500.4050, L100.0100, L501.9520 #### [facility] [address] [place], [address] Eosinophils/100 WBC (Bld) 6.2 % High 0-5 [facility] Comment on above: Performed By: #### L 506.1001, L500.4050, L100.0100, L501.9520 #### [facility] [address] [place], [address] Erythrocyte distribution width (RBC) [Ratio] 12.6 % Normal 11.6-14.6 [facility] Comment on above: Performed By: #### L 506.1001, L500.4050, L100.0100, L501.9520 #### [facility] [address] [place], [address] Hematocrit (Bld) [Volume fraction] 45.2 % Normal 40-54 [facility] Comment on above: Performed By: #### L 506.1001, L500.4050, L100.0100, [id number] #### [facility] [address] [place], [address] Hemoglobin (Bld) [Mass/Vol] 15.3 g/dL Normal 13.0-16.5 [facility] Comment on above: Performed By: #### L 506.1001, L500.4050, L100.0100, L501.9520 #### [facility] [address] [place], [address] IG% 0.300 Normal 0.0-0.9 [facility] Comment on above: Result Comment: IG% - Immature Granulocytes (promyelocytes, myelocytes and metamyelocytes) > 1% indicates that a LEFT SHIFT is Present. Performed By: #### L 506.1001, L500.4050, L100.0100, L501.9520 #### [facility] [address] [place], [address] Lymphocytes/100 WBC (Bld) 30.5 % Normal 19-41 [facility] Comment on above: Performed By: #### L 506.1001, L500.4050, L100.0100, [id number] #### [facility] [address] [place], [address] MCH (RBC) [Entitic mass] 32.0 pg Normal 27.0-32.0 [facility] Comment on above: Performed By: #### L 506.1001, L500.4050, L100.0100, L501.9520 #### [facility] [address] [place], [address] MCHC (RBC) [Mass/Vol] 33.8 g/dL Normal 32-36 [facility] Comment on above: Performed By: #### L 506.1001, L500.4050, L100.0100, L501.9520 #### [facility] [address] [place], [address] MCV (RBC) [Entitic vol] 94.6 fL High 80-94 [facility] Comment on above: Performed By: #### L 506.1001, L500.4050, L100.0100, L501.9520 #### [facility] [address] [place], [address] Monocytes/100 WBC (Bld) 8.8 % Normal 0-10 [facility] Comment on above: Performed By: #### L 506.1001, L500.4050, L100.0100, L501.9520 #### [facility] [address] [place], [address] Neutrophils/100 WBC (Bld) 53.7 % Normal 47-70 [facility] Comment on above: Performed By: #### L 506.1001, L500.4050, L100.0100, [id number] #### [facility] [address] [place], [address] Nucleated RBC (Bld) [#/Vol] 0 10*3/uL Normal 0-5 [facility] Comment on above: Performed By: #### L 506.1001, L500.4050, L100.0100, L501.9520 #### [facility] [address] [place], [address] Platelet mean volume (Bld) [Entitic vol] 10.4 fL Normal 6.2-12.0 [facility] Comment on above: Performed By: #### L 506.1001, L500.4050, L100.0100, L501.9520 #### [facility] [address] [place], [address] Platelets (Bld) [#/Vol] 180 10*3/uL Normal 150-450 [facility] Comment on above: Performed By: #### L 506.1001, L500.4050, L100.0100, [id number] #### [facility] [address] [place], [address] RBC (Bld) [#/Vol] 4.78 10*6/uL Normal 4.6-6.2 [facility] Comment on above: Performed By: #### L 506.1001, L500.4050, L100.0100, [id number] #### [facility] [address] [place], [address] RDW SD 43.7 fl Normal 35.1-43.9 [facility] Comment on above: Performed By: #### L 506.1001, L500.4050, L100.0100, [id number] #### [facility] [address] [place], [address] WBC (Bld) [#/Vol] 5.8 10*3/uL Normal 4.4-11.0 [facility] Comment on above: Performed By: #### L 506.1001, L500.4050, L100.0100, L501.9520 #### [facility] [address] [place], [address] Carbon dioxide, total [Moles /volume] in Central venous bloodOrdered By: Larry Morel on 06-05-2025 CO2 [Moles/Vol] 24.6 mmol/L 21.0-32.0 [facility] Chloride assayOrdered By: Coy Morel on 06-05-2025 Chloride [Moles/Vol] 105 mmol/L 98-108 [facility] Comprehensive Metabolic Prof ilon 06-05-2025 Albumin [Mass/Vol] 4.1 g/dL Normal 3.4-4.8 [facility] Comment on above: Performed By: #### L 506.1001, L500.4050, L100.0100, L501.9520 #### [facility] [address] [place], [address] Albumin/Globulin [Mass ratio] 1.4 {ratio} Normal 0.9-2.4 [facility] Comment on above: Performed By: #### L 506.1001, L500.4050, L100.0100, L501.9520 #### [facility] [address] [place], [address] ALK PHOS 74 U/L Normal 40-129 [facility] Comment on above: Performed By: #### L 506.1001, L500.4050, L100.0100, L501.9520 #### [facility] [address] [place], [address] ALT [Catalytic activity/Vol] 20 U/L Normal <=46 [facility] Comment on above: Performed By: #### L 506.1001, L500.4050, L100.0100, L501.9520 #### [facility] [address] [place], [address] AST [Catalytic activity/Vol] 27 U/L Normal <=37 [facility] Comment on above: Performed By: #### L 506.1001, L500.4050, L100.0100, L501.9520 #### [facility] [address] [place], [address] Bilirubin [Mass/Vol] 0.39 mg/dL Normal 0.00-1.30 [facility] Comment on above: Performed By: #### L 506.1001, L500.4050, L100.0100, L501.9520 #### [facility] [address] [place], [address] BUN/CRE 21.9 RATIO High 10-20 [facility] Comment on above: Performed By: #### L 506.1001, L500.4050, L100.0100, L501.9520 #### [facility] [address] [place], [address] Calcium [Mass/Vol] 9.3 mg/dL Normal 7.6-11.0 [facility] Comment on above: Performed By: #### L 506.1001, L500.4050, L100.0100, L501.9520 #### [facility] [address] [place], [address] Chloride [Moles/Vol] 105 mmol/L Normal 98-108 [facility] Comment on above: Performed By: #### L 506.1001, L500.4050, L100.0100, L501.9520 #### [facility] [address] [place], [address] CO2 [Moles/Vol] 24.6 mmol/L Normal 21.0-32.0 [facility] Comment on above: Performed By: #### L 506.1001, L500.4050, L100.0100, L501.9520 #### [facility] [address] [place], [address] GAP 12 Normal 5-15 [facility] Comment on above: Performed By: #### L 506.1001, L500.4050, L100.0100, L501.9520 #### [facility] [address] [place], [address] GFR/1.73 sq M.predicted among non-blacks MDRD (S/P/Bld) [Vol rate/Area] 97 mL/min/{1.73_m2} Normal >60 [facility] Comment on above: Result Comment: mL/m in/1.73m2 CKD-EPI Creatinine Equation (2020) Performed By: #### L 506.1001, L500.4050, L100.0100, L501.9520 #### [facility] [address] [place], [address] Globulin (S) [Mass/Vol] 2.8 g/dL Normal 2.2-4.2 [facility] Comment on above: Performed By: #### L 506.1001, L500.4050, L100.0100, L501.9520 #### [facility] [address] [place], [address] Potassium [Moles/Vol] 4.1 mmol/L Normal 3.3-5.1 [facility] Comment on above: Performed By: #### L 506.1001, L500.4050, L100.0100, L501.9520 #### [facility] [address] [place], [address] Sodium [Moles/Vol] 141 mmol/L Normal 133-145 [facility] Comment on above: Performed By: #### L 506.1001, L500.4050, L100.0100, L501.9520 #### [facility] [address] [place], [address] T PROT 6.9 g/dL Normal 5.9-8.4 [facility] Comment on above: Performed By: #### L 506.1001, L500.4050, L100.0100, L501.9520 #### [facility] [address] [place], [address] Creatinine [Mass/Vol] 0.81 mg/dL Normal 0.70-1.20 [facility] Comment on above: Performed By: #### L 506.1001, L500.4050, L100.0100, L501.9520 #### [facility] [address] [place], [address] Glucose [Mass/Vol] 119 mg/dL High 70-99 [facility] Comment on above: Performed By: #### L 506.1001, L500.4050, L100.0100, L501.9520 #### [facility] [address] [place], [address] Urea nitrogen [Mass/Vol] 18 mg/dL Normal 4-19 [facility] Comment on above: Performed By: #### L 506.1001, L500.4050, L100.0100, L501.9520 #### [facility] [address] [place], [address] Eosinophil percentageOrdered By: Larry Morel on 06-05-2025 Eosinophils/100 WBC (Bld) 6.2 % High 0-5 [facility] Erythrocyte distribution wid th ratioOrdered By: Larry Morel on 06-05-2025 Erythrocyte distribution width (RBC) [Ratio] 12.6 % 11.6-14.6 [facility] Erythrocyte distribution wid th standard deviationOrdered By: Larry Adriel on 06-05-2025 Erythrocyte distribution width (RBC) [Ratio] 43.7 fl 35.1-43.9 [facility] Glomerular filtration rate ( GFR) estimation/1.73 sq m using serum, plasma, or whole bOrdered By: Larry Morel on 06-05-2025 GFR/1.73 sq M.predicted among non-blacks MDRD (S/P/Bld) [Vol rate/Area] 97 mL/min/{1.73_m2} >60 [facility] Comment on above: mL/min/1.73m2 CKD-EP I Creatinine Equation (2020) Hematocrit Auto (Bld) [Volum e fraction]Ordered By: Larry Morel on 06-05-2025 Hematocrit (Bld) [Volume fraction] 45.2 % 40-54 [facility] Hemoglobin measurementOrdere d By: Larry Morel on 06-05-2025 Hemoglobin (Bld) [Mass/Vol] 15.3 g/dL 13.0-16.5 [facility] Immature granulocytes/100 WB C Auto (Bld)Ordered By: Larry Morel on 06-05-2025 Immature granulocytes/100 WBC (Bld) 0.300 % 0.0-0.9 [facility] Comment on above: IG% - Immature Granu locytes (promyelocytes, myelocytes and metamyelocytes) > 1% indicates that a LEFT SHIFT is Present. Laboratory - Chemistry and C hemistry - challengeOrdered By: Larry Morel on 06-05-2025 AST [Catalytic activity/Vol] 27 U/L <38 [facility] MCV (mean corpuscular volume ) determinationOrdered By: Larry Morel 06-05-2025 MCV (RBC) [Entitic vol] 94.6 fL High 80-94 [facility] Mean corpuscular hemoglobin (MCH) determinationOrdered By: Larry Morel 06-05-2025 MCH (RBC) [Entitic mass] 32.0 pg 27.0-32.0 [facility] Mean corpuscular hemoglobin concentration (MCHC) determinationOrdered By: Larry Morel 06-05-2025 MCHC (RBC) [Mass/Vol] 33.8 g/dL 32-36 [facility] Mean platelet volume determi nationOrdered By: Larry Morel 06-05-2025 Platelet mean volume (Bld) [Entitic vol] 10.4 fL 6.2-12.0 [facility] Monocyte percentageOrdered B y: Larry Morel on 06-05-2025 Monocytes/100 WBC (Bld) 8.8 % 0-10 [facility] Neutrophil percentageOrdered By: Larry Morel 06-05-2025 Neutrophils/100 WBC (Bld) 53.7 % 47-70 [facility] Nucleated red blood cell per centageOrdered By: Larry Morel on 06-05-2025 Nucleated RBC/100 WBC (Bld) [Ratio] 0 % 0-5 [facility] Platelet countOrdered By: Coy Morel on 06-05-2025 Platelets (Bld) [#/Vol] 180 10*3/uL 150-450 [facility] Potassium measurement (mass/ volume)Ordered By: Larry Morel on 06-05-2025 Potassium (Unsp spec) [Mass/Vol] 4.1 mmol/L 3.3-5.1 [facility] RBC Auto (Bld) [#/Vol]Ordere d By: Larry Morel on 06-05-2025 RBC (Bld) [#/Vol] 4.78 10*6/uL 4.6-6.2 [facility] Serum creatinine measurement (mass/volume)Ordered By: Larry Morel on 06-05-2025 Creatinine [Mass/Vol] 0.81 mg/dL 0.70-1.20 [facility] Serum globulin measurementOr dered By: Larry Morel on 06-05-2025 Globulin (S) [Mass/Vol] 2.8 g/dL 2.2-4.2 [facility] Serum glucose measurement (m ass/volume)Ordered By: Larry Morel on 06-05-2025 Glucose [Mass/Vol] 119 mg/dL High 70-99 [facility] Serum or plasma alanine hylton otransferase (ALT) measurementOrdered By: Larry Morel 06-05-2025 ALT [Catalytic activity/Vol] 20 U/L <47 [facility] Serum or plasma albumin spring urement (mass/volume)Ordered By: Larry Morel on 06-05-2025 Albumin [Mass/Vol] 4.1 g/dL 3.4-4.8 [facility] Serum or plasma albumin/glob ulin mass ratioOrdered By: Larry Morel 06-05-2025 Albumin/Globulin [Mass ratio] 1.4 {ratio} 0.9-2.4 [facility] Serum or plasma alkaline carlos manuel sphatase measurementOrdered By: Larry Morel on 09-03-2025 ALP [Catalytic activity/Vol] 74 U/L 40-129 [facility] Serum or plasma calcium spring urement (mass/volume)Ordered By: Larry Morel on 06-05-2025 Calcium [Mass/Vol] 9.3 mg/dL 7.6-11.0 [facility] Serum or plasma urea nitroge n measurement (mass/volume)Ordered By: Larry Morel on 06-05-2025 Urea nitrogen [Mass/Vol] 18 mg/dL 4-19 [facility] Sodium levelOrdered By: Larry Morel on 06-05-2025 Sodium [Moles/Vol] 141 mmol/L 133-145 [facility] TSH DL <= 0.005 mIU/L QnOrde red By: Larry Morel on 06-05-2025 TSH Qn 1.030 uIU/mL 0.300-4.200 [facility] Thyroid Stim Hormone (TSH)on 06-05-2025 TSH 1.030 uIU/mL Normal 0.300-4.200 [facility] Comment on above: Performed By: #### L 506.1001, L500.4050, L100.0100, L501.9520 #### [facility] [address] [place], [place], [id number] Total proteinOrdered By: Larry Morel on 06-05-2025 Protein [Mass/Vol] 6.9 g/dL 5.9-8.4 [facility] Vitamin D,25 Hydroxyon 06-05 Vitamin D 25-OH 29.1 ng/mL Low 30-100 [facility] Comment on above: Result Comment: Jacinda min D Status Deficiency: <20 ng/mL (50nmol/L) Insufficiency: 20-30 ng/mL (50-75 nmol/L) Sufficiency: 30-100 ng/mL (75-250 nmol/L) Toxicity: >100 ng/mL (>250 nmol/L) Performed By: #### L 506.1001, L500.4050, L100.0100, L501.9520 #### [facility] [address] [place], [place], [address] White blood cell (WBC) count Ordered By: Larry Morel on 06-05-2025 WBC (Bld) [#/Vol] 5.8 10*3/uL 4.4-11.0 [facility] Bedside Glucoseon 03-26-2025 FINGERSTICK GLU 102 mg/dL Normal 74-106 [facility] Comment on above: Result Comment: ELZBIETA CAVAZOS OF PATIENT CARE PER NURSING PROTOCOL Performed By: #### L 501.080 ####[facility] [id number] [place], [address] Colonoscopy Reporton 025 Colonoscopy Report [facility] Medical Records Department [address] [place] [address] Colonoscopy Report MR#: [id number] Acct: [id number] Name: HOMER LEWIS Rep #: [id number] : 1960 65 From: Vasyl Ventura DO PCP: Dr. Larry Morel MD Status:[facility] Patient Name: Homer Lewis Procedure Date: 03/26/2025 2:03 PM Date of : 1960 Age: 65 Procedure: Colonoscopy Indications: High risk colon cancer surveillance: Personal history of colonic polyps Providers: Vasyl Ventura DO Referring MD: Larry Morel MD Medicines: Monitored Anesthesia Care Patient Profile: This is a 65 year old male. Refer to note in patient chart for documentation of history and physical. Last Colonoscopy: more than 3 years ago. Complications: No immediate complications. Procedure: Pre-Anesthesia Assessment: - Prior to the procedure, a History and Physical was performed, and patient medications and allergies were reviewed. The patient is competent. The risks and benefits of the procedure and the sedation options and risks were discussed with the patient. All questions were answered and informed consent was obtained. Patient identification and proposed procedure were verified in the pre-procedure area. Mental Status Examination: alert and oriented. Airway Examination: normal oropharyngeal airway and neck mobility. Respiratory Examination: clear to auscultation. CV Examination: normal. Prophylactic Antibiotics: The patient does not require prophylactic antibiotics. Prior Anticoagulants: The patient has taken no anticoagulant or antiplatelet agents except for NSAID medication. ASA Grade Assessment: II - A patient with mild systemic disease. After reviewing the risks and benefits, the patient was deemed in satisfactory condition to undergo the procedure. The anesthesia plan was to use monitored anesthesia care (MAC). Immediately prior to administration of medications, the patient was re-assessed for adequacy to receive sedatives. The heart rate, respiratory rate, oxygen saturations, blood pressure, adequacy of pulmonary ventilation, and response to care were monitored throughout the procedure. The physical status of the patient was re-assessed after the procedure. After I obtained informed consent, the scope was passed under direct vision. Throughout the procedure, the patient's blood pressure, pulse, and oxygen saturations were monitored continuously. The Colonoscope was introduced through the anus and advanced to the cecum, identified by appendiceal orifice and ileocecal valve. The colonoscopy was performed without difficulty. The patient tolerated the procedure well. The quality of the bowel preparation was adequate. The ileocecal valve, appendiceal orifice, and rectum were photographed. Scope In: 2:12:25 PM Scope Withdrawal Time 0 hours 12 minutes 46 seconds Scope Out: 2:29:47 PM Total Procedure Duration Time 0 hours 17 minutes 22 seconds Findings: The perianal and digital rectal examinations were normal. Three sessile polyps were found in the sigmoid colon. The polyps were 6 mm in size. These polyps were removed with a jumbo cold forceps. Resection and retrieval were complete. Verification of patient identification for the specimen was done. Estimated blood loss was minimal. Multiple small and large-mouthed diverticula were found in the recto-sigmoid colon and sigmoid colon. The exam was otherwise without abnormality on direct and retroflexion views. Impression: - Three 6 mm polyps in the sigmoid colon, removed with a jumbo cold forceps. Resected and retrieved. - Diverticulosis in the recto-sigmoid colon and in the sigmoid colon. - The examination was otherwise normal on direct and retroflexion views. Recommendation: - Discharge patient to home. - Resume previous diet. - Continue present medications. - Await pathology results. - Repeat colonoscopy in 5 years for surveillance. Procedure Code(s): --- Professional --- 75505, Colonoscopy, flexible; with biopsy, single or multiple CPT copyright 2021 [employer]. All rights reserved. The codes documented in this report are preliminary and upon injection mold technician review may be revised to meet current compliance requirements. Vasyl Ventura DO 03/26/2025 2:33:21 PM This report has been signed electronically. Number of Addenda: 0 Note Initiated On: 03/26/2025 2:03 PM 03/26/25 1433 Date Vasyl Ventura DO Cosigner Signature: Date (if indicated) CC: Dr. Larry Morel MD; Vasyl Ventura DO Date Dictated: 03/26/25 1403 Date Transcribed: Sports Instructor: RAFAEL Signed [facility] deOrdered By: Vasyl Ventura on 03-26-2025 Glucose [Mass/Vol] 102 mg/dL 74-106 [facility] Comment on above: MANAGEMENT OF PATIEN T CARE PER NURSING PROTOCOL MR/POSTOP.ANEon 03-26-2025 MR/POSTOP.[facility] Medical Records Department [address] [place] [address] Anesthesia Postop Eval I 03/26/25 1440 MR#: [id number] Acct: [id number] Name: HOMER LEWIS Rep #: [id number] : 1960 65 From: Ricky Powers PCP: Dr. Larry Morel MD Status:REG [facility] Y Race: C Location: [place] [address] Anesthesia: Postop Eval I Current Vital Signs Temperature: 97.3 F Pulse Rate: 57 Blood Pressure: 110/70 Respiratory Rate: 16 Pulse Ox: 96 Oxygen Delivery Method: Room Air Assessment Airway patent: Yes Spontaneous unlabored respirations: Yes Mental status: Asleep nausea: No Vomiting: No Anesthesia Complication: No Fluid Hydration Crystalloid volume administer (ml): 600 Total IV fluid infused: 600 Progress Note Anesthesia document: Postop Eval 1 completed: Yes 03/26/25 1441 Date Ricky Mcrae Signature: Date CC: Signed Normal [facility] MR/[id number] 03-26-2025 MR/POSTOPAN2 [facility] Medical Records Department [address] [place] [address] Anesthesia Postop Eval II 03/26/25 170 MR#: [id number] Acct: [id number] Name: HOMER LEWIS Rep #: [id number] : 1960 65 From: Saundra Arita CRNA PCP: Dr. Larry Morel MD Status:[facility] Y Race: C Location: [place] Anesthesia Postop Eval I Sum Postop Eval Completion status Anesthesia document: Postop Eval 1 completed: Yes Anesthesia Postop Eval I Summary Anesthesia Postop Eval I Summary: Anesthesia Postop Eval I: Assessment Summary Airway patent Yes 03/26/25 14:41 [email or web address] Spontaneous unlabored Yes 03/26/25 14:41 [email or web address] respirations Mental status Asleep 03/26/25 14:41 [email or web address] nausea No 03/26/25 14:41 [email or web address] Vomiting No 03/26/25 14:41 [email or web address] Anesthesia Postop Eval I: Fluid Summary Crystalloid volume administer 600 03/26/25 14:41 [email or web address] (ml) Colloids volume administered ( ml) Blood Product volume administered (ml) Total IV fluid infused 600 03/26/25 14:41 [email or web address] Anesthesia Postop Eval I: Summary Notes Anesthesia Complication No 03/26/25 14:41 [email or web address] Anesthesia Complication Comment: Post-operative progress note Anesthesia: Postop Eval II Evaluation Mental status: Awake and Calm Pain Level: 0 nausea: No Vomiting: No Complications Anesthesia Complication: No 03/26/251707 Date Saundra Coltcatarinokit HANNAH Mcrae Signature: Date CC: Signed Normal [facility] Surgery Specimen Level Freddie 03-26-2025 Surgery Specimen Level IV -- Patient Age/Sex Location Account Attending Physician -- HOMER LEWIS 65/M EN [id number] Vasyl Ventura DO -- Specimen: [id number] Received: 03/26/25 Status: NOAH Wright Num: [id number] Spec Type: COLON BX Subm Dr: Vasyl Ventura, HEADER OPERATION: Colonoscopy PRE-OP DIAGNOSIS: Encounter for screening for malignant neoplasm of colon TISSUE SUBMITTED: A- Sigmoid polyp biopsy -- MICROSCOPIC DIAGNOSIS A. Sigmoid, polyp, colon, biopsy: - Hyperplastic polyp. MICROSCOPIC DESCRIPTION Slides are reviewed. GROSS DESCRIPTION A. Received in fixative is one container labeled with the patient's name and designated Sigmoid polyp biopsy. The specimen consists of multiple irregular fragments of light beckwith soft tissue that in aggregate measure 0.2 to 0.3 cm. The specimen is totally submitted in one cassette. Aquiles 03/27/2025 CPT:22832 -- Patient Age/Sex Location Account Attending Physician -- HOMRE LEWIS 65/M EN [id number] Vasyl Ventura DO -- Signed (signatu re on file) Dr. Eloina Mora MD 04/11/25 8465 -- Normal [facility] Comment on above: Performed By: #### P SUIV ####[facility] [id number] [place], [place], [address] MR/Ernestine 01-04-2025 /Eleuterio [facility] Vascular Surgery [address] [place] [address] OFFICE VISIT Date of Service: 01/04/25 MR#: [id number] Acct: [id number] Name: HOMER LEWIS Rep #: [id number] : 1960 Provider: JONATHAN Whitaker Age/Sex: 64/M Location: [facility] Status: Signed Intake Vital Signs 11/08/24 09:14 01/04/25 14:13 Height 6 ft 1 in Weight: 274 lb BP 138/88 H Blood Pressure Location Lt brachial Position Sitting Respiration 16 Pulse 75 Pulse Source Monitor Temp 97.7 F L Temp Source Temporal Pulse Oximetry (%) 94 Oxygen Delivery Method room air Intake Visit Reasons: AAA Chief Complaint: establish care Is patient in pain?: No Allergies No Known Allergies Allergy (Verified 01/04/25 14:10) Medications ???Medication ???Instructions ???Recorded ???Confirmed ???Type RSVPreF3 antigen-AS01E 0.5 ml IM ONCE 01/03/25 01/03/25 H istory adjuvant(PF) 120 mcg/0.5 mL IM suspension, kit (Arexvy (PF)) amoxicillin 875 mg-potassium 1 tab PO Q12H 01/03/25 01/03/25 Hi story clavulanate 125 mg tablet phentermine 37.5 mg capsule 37.5 mg PO QDAY 01/03/25 01/03/25 History pneumo 21-montse conj-dip crm(PF) 0.5 0.5 ml IM ONCE 01/03/25 01/03/25 History mL IM syringe (Capvaxive) Have you fallen in the past year?: No PFSH Medical History Gout Tetrahydrocannabin ol (THC) use disorder, moderate, dependence Hyperlipidemia Type 2 diabetes mellitus Hx of colonic polyp Surgical History Hx of colonoscopy Family History Mother Breast cancer Diverticulitis Social History household members: family current occupational status: retired Smoking Status: Never smoker alcohol intake: former substance use type: marijuana HPI HPI HPI: HOMER LEWIS, is a 64 M who presents to the office today for evaluation and management of AAA and iliac artery aneurysms identified on recent screening test as referred by his PCP Dr. Morel. He had aortic duplex screening on 12/03/24 which demonstrated infrarenal AAA 3.5 cm, right iliac artery aneurysm 2.14 cm, and left iliac artery aneurysm 1.88cm. He denies any new/persistent abdominal, pelvic, groin, back, flank, or chest pain. He denies any claudication, nocturnal/rest pain in the lower extremities, or nonhealing leg ulcerations. He reports no family history of aneurysmal disease. He reports a long history of smoking marijuana, but no cigarette smoking. He reports he was prediabetic but has been in a weight loss program, lost a lot of weight, and his lab work has been much better. He does have a history of hypertension but this has been improved since he has lost weight as well. He denies any history of CVA/TIA, VTE, coronary artery disease. ROS General General: Yes weight change; No appetite, fatigue, colon cancer, breast cancer or weakness HEENT HEENT: No difficulty swallowing, eye injury, eye surgery, swollen glands or hoarseness Endo Endocrine: No thyroid disease, diabetes mellitus, thyroid cancer, Hair loss, heat intolerance or cold intolerance Skin Skin: No rash or changing moles Musc Musculoskeletal: Yes back problems and arthritis; No rheumatoid arthritis, gout or joint pain Cardio Cardiovascular: No murmur, pacemaker, heart disease, atrial fibrillation, high blood pressure, heart attack, heart stent, palpitations, shortness of breath with exertion or chest pain Psych Psychiatric: Yes depression and anxiety; No hearing voices Resp Respiratory: No shortness of breath, Yes sleep apnea, No cough, No COPD, No asthma, No emphysema and No wheezing Gastro Gastrointestinal: No abdominal pain, No nausea or vomiting, No diarrhea, No constipation, No blood in stool, No acid reflux, No hemorrhoids, No ulcers, No gallbladder problem and No black,tarry stools Christiano Hematologic: No blood thinners, No blood disorders, No bleeding, No anemia and No blood clots Neuro Neurologic: No system reviewed and no additional complaints, except as documented, No as per HPI, No abnormal gait, Yes abnormal hearing, No abnormal movements, No abnormal speech, No behavioral changes, No burning sensations, No confusion, No convulsions, No disequilibrium, No dizziness, No localized weakness, No frequent falls, No headache(s), No lack of coordination, No loss of vision, No memory loss, Yes numbness, Yes other visual disturbances, No radicular pain, Yes restless legs, No sensory deficit, No syncope, Yes tingling, No tremor(s), No weakness and No other Exam Const General: cooperative, comfortable and no acute distress Orientation: alert, awake and oriented x3 HENMT Hea (more content not included)... Normal [facility] AAA Screeningon 12-03-2024 AAA Screening [facility] Cardiovascular Services [address] [place] [address] AAA Screening 12/03/24 0905 MR#: [id number] Acct: [id number] Name: HOMER LEWIS Rep #: [id number] : 1960 64 From: Bryan Valdes MD Attending Dr: Dr. Larry Morel MD Status: REG [facility] Ordering Dr: Larry Morel MD Date: 12/03/24 Location: [facility] Sex: M C Admitted: Reason For Study Reason For Study: AAA Aorta Measurements Aorta Doppler Measurements Proximal aorta measures2.07x2.07c m. in cross-sectional axis.Peak systolic flow velocities within the proximal aorta Proximal aorta measures1.85cm. in longitudinal axis. measure 92.2 cm/sec. Mid aorta measures2.81x2.81c m. in cross-sectional axis. Peak systolic flow velocities within the mid aorta measure Mid aorta measures2.77cm. in longitudinal axis. 171.4 cm/sec. Distal aorta measures3.50x3.50c m. in cross-sectional axis. Peak systolic flow velocities within the distal aorta Distal aorta measures3.25cm. in longitudinal axis. measure 20.0 cm/sec. Left Iliac Artery Left iliac artery measures 1.66 cm. in the longitudinal axis. Left iliac artery measures 1.78x1.88 cm. in the cross- sectional axis. Peak systolic velocity in the left iliac artery measures 51.6 cm/sec. Right Iliac Artery Right iliac artery measures 1.88 cm. in the longitudinal axis. Right iliac artery measures 2.14x2.14 cm. in the cross- sectional axis. Peak systolic velocity in the right iliac artery measures 64.8 cm/sec. Procedure Aorta IVC Iliac vasculature or bypass grafts [id number]. Exam performed in department. VL/AAA Screening Interpretation Summary Aorta patent, 3.5 cm aneurysm present Right iliac artery patent, 2.14 cm aneurysm present Left iliac artery patent, 1.88 cm aneurysm present Ordering Physician: Larry Morel Chi Referring Physician: Larry Morel Chi Performed By: Carter Mendez RVT and Student 12/03/24 142 Date Bryan Valdes MD CC: Dr. Larry Morel MD Date Dictated: 12/03/24904 Date Transcribed: 12/03/241428 Sports Instructor: Signed [facility] Cardiovascular ultrasound re portOrdered By: Bryan Valdes on 12-03-2024 Study report [facility] Cardiovascular Services [address] [place] [address] AAA Screening 12/03/24904 MR#: [id number] Acct: [id number] Name: HOMER LEWIS Rep #:[id number] : 1960 64 From: Bryan Horn Attending Dr: Dr. Larry Morel MD Status: REG CLI Ordering Dr: Larry Morel MD Date: 12/25 Location: [facility] Sex: M C Admitted: Reason For Study Reason For Study: AAA Aorta Measurements Aorta Doppler Measurements Proximal aorta measures2.07x2.07c m. in cross-sectional axis.Peak systolic flow velocities within the proximal aorta Proximal aorta measures1.85cm. in longitudinal axis. measure 92.2 cm/sec. Mid aorta measures2.81x2.81c m. in cross-sectional axis. Peak systolic flow velocities within the mid aorta measure Mid aorta measures2.77cm. in longitudinal axis. 171.4 cm/sec. Distal aorta measures3.50x3.50c m. in cross-sectional axis. Peak systolic flow velocities within the distal aorta Distal aorta measures3.25cm. in longitudinal axis. measure 20.0 cm/sec. Left Iliac Artery Left iliac artery measures 1.66 cm. in the longitudinal axis. Left iliac artery measures 1.78x1.88 cm. in the cross- sectional axis. Peak systolic velocity in the left iliac artery measures 51.6 cm/sec. Right Iliac Artery Right iliac artery measures 1.88 cm. in the longitudinal axis. Right iliac artery measures 2.14x2.14 cm. in the cross- sectional axis. Peak systolic velocity in the right iliac artery measures 64.8 cm/sec. Procedure Aorta IVC Iliac vasculature or bypass grafts [id number]. Exam performed in department. VL/AAA Screening Interpretation Summary Aorta patent, 3.5 cm aneurysm present Right iliac artery patent, 2.14 cm aneurysm present Left iliac artery patent, 1.88 cm aneurysm present Ordering Physician: Larry Morel Chi Referring Physician: Larry Morel Chi Performed By: Carter Mendez RVT and Student 12/03/24 1429 Date _ Bryan Valdes MD CC: Dr. Larry Morel MD ~ Date Dictated: 12/03/24904 Date Transcribed: 12/03/241428 Sports Instructor: Signed [facility] Work Phone: Low Dose CT Lung Screeningon 11-21-[address] Lung Screening [facility] Imaging Services [address] [place] [id number] Lung Screening MR#: [id number] Acct: [id number] Name: HOMER LEWIS Rep #: [id number] : 1960 M 64 From: Michael luong MD PCP: Dr. Larry Morel MD Status: REG CLI Study: Low Dose CT Lung Screening Date of Exam: 11/21 Exam# [id number] Ordering Dr: Larry Morel MD PROCEDURE: LOW DOSE CT LUNG SCREENING REASON FOR EXAM: History of 15 Bong loads of THC. TECHNIQUE: Low Dose CT Lung Screening without contrast COMPARISON: None. FINDINGS: PULMONARY NODULES: (Only nodules >6mm are reported) Nodules described below are on series 1 unless otherwise specified. Pulmonary Nodules: No concerning pulmonary nodules. Hardware:None Lymph Nodes:No mediastinal hilar or axillary lymphadenopathy. Heart and Vasculature:Normal heart size. No pericardial effusion.Thoracic aorta and pulmonary arteries have normal contours; noncontrast technique limits evaluation. Coronary Artery Calcifications: Present Lungs and Airways: The lungs are normally expanded and clear. Pleura:No pleural effusion. No pneumothorax. Upper Abdomen:Visualized portions of the upper abdominal viscera are unremarkable. Bones:Degenerative changes of the thoracic spine. CT/Low Dose CT Lung Screening IMPRESSION: 1. BASED ON THE ACR LUNG RADS FOR THE MOST SUSPICIOUS NODULE (IF ANY) DESCRIBED IN THIS REPORT, THE OVERALL LUNG RADS SCORE IS 1. 1 - NEGATIVE. RECOMMEND 12-MONTH SCREENING LDCT.. 2. SMOKING CESSATION COUNSELING IS RECOMMENDED IF THE PATIENT IS STILL SMOKING. 3. OTHER SIGNIFICANT FINDINGSNone. One or more dose reduction techniques were used (e.g., Automated exposure control, adjustment of the mA and/or kV according to patient size, use of iterative reconstruction technique). The following information is provided for reference:Lung-RAD S 2022 Assessment Categories. Additional information involving Lung-RADS is available at www.acr.org. 0-INCOMPLETE 1-NEGATIVE:No nodules or definitely benign nodules. Complete, central, popcorn, or centric ring calcifications OR fat containing 2-BENIGN APPEARANCE (based on imaging features or indolent behavior). Juxtapleural nodule: < 10mm AND solid; smooth margins; oval, entiform, or triangular shape Solid nodule: <6mm at baseline or new< 4mm Part solid Nodule: < 6mm total mean diameter at baseline Nonsolid nodule:(GGN) < 30mm OR >=30mm stable or slowly growing Airway nodule, subsegmental at baseline, new, or stable Category 3 nodule stable or decreased in size at 6-month follow-up CT or Category 3 or 4A nodules that resolve on follow-up OR category 4B findings proven to be benign following diagnotic work up. 3 - Probably Benign (Based on imaging features or behavior) Solid Nodule: >= 6 to <8mm at baseline OR new 4 to <6mm Part-solid nodule: >= 6mm toal mean diam. with solid component <6mm at baseline OR new < 6mm total mean diam. Non-solid nodule: GGN >= 30mm at baseline or new Atypical pulmonary cyst: Growing cystic component (mean diam.) of thick-walled cyst Category 4A nodule stable or decreased in size at 3-month follow-up CT (excl.airway). 4A - Suspicious Solid nodule: >=8 to < 15mm at baseline OR growing < 8mm OR new 6 to < 8mm Part solid nodule: >= 6mm total mean diam. w/ solid component >=6mm to < 8mm at baseline OR new or growing < 4mm solid component Airway nodule, segmental or more proximal at baseline or new Atypical pulmonary cyst: Thick-walled OR multilocular at baseline OR becomes multilocular 4B - Very Suspicious Airway nodule, segmental or more proximal, and stable or growing Solid nodule: >= 15mm at baseline OR new or growing >= 8mm Part solid nodule: Solid component >= 8mm OR new or growing >= 4mm solid component Atypical pulmonary cyst: Thick-walled with growing wall thickness/nodulari ty OR Growing multilocular (mean diam.) OR Multilocular with increased loculation or new/increased opacity Slow-growing solid or part solid nodule w/ growth over multiple screening exams 4X - Very Suspicious Category 3 or 4 nodules with additional features that increase the suspicion for lung cancer. S - Clinically Significant or potentially significant findings (non-lung cancer) 3. OTHER SIGNIFICANT FINDINGSNone. One or more dose reduction techniques were used (e.g., Automated exposure control, adjustment of the mA and/or kV according to patient size, use of iterative reconstruction technique). The following information is provided for reference:Lung-RAD S 202 Assessment Categories. Additional information involving Lung-RADS is available at www.acr.org. 0-INCOMPLETE 1-NEGATIVE:No nodules or definitely benign nodules. Complete, central, popcorn, or centric ring calcifications OR fat containing 2-BENIGN APPEARANCE (based on imaging features (more content not included)... Normal [facility] Uric Acidon 11-01-2024 URIC 5.6 mg/dL Normal 3.5-7.2 [facility] Comment on above: Result Comment: The drugs N-Acetylcysteine and Metamizole may falsely depress this assay. Performed By: #### L 100.0100, L3890.6300, L501.9520, L506.1000, L500.4050, L501.9985, L501.1400, L501.9910 ####[facility] [id number] [place], [address] 08-UU-Ckzycgd DOrdered By: Cele Morel on 10-31-2024 Vitamin D 25-Hydroxy 41.8 ng/mL [facility] Comment on above: Vitamin D 25(OH) Sta tus Range Deficiency <20 ng/mL (50nmol/L) Insufficiency 20 - 30 ng/mL (50 - 75 nmol/L) Sufficiency 30 - 100 ng/mL (75 - 250 nmol/L) Toxicity >100 ng/mL (>250 nmol/L) Absolute neutrophil countOrd ered By: Larry Morel on 10-31-2024 Neutrophils (Bld) [#/Vol] 3.4 10*3/uL 2.0-7.7 [facility] Albumin to globulin ratioOrd ered By: Larry Morel on 10-31-2024 Albumin/Globulin [Mass ratio] 1.1 {ratio} 0.9-2.4 [facility] Basophil percentageOrdered B y: Larry Morel on 10-31-2024 Basophils/100 WBC (Bld) 0.3 % 0-1 [facility] Bilirubin, totalOrdered By: Larry Morel on 10-31-2024 Bilirubin [Mass/Vol] 0.60 mg/dL 0.20-1.00 [facility] Comment on above: For patients on eltr ombopag therapy, use of Dimension [place] TBIL is not recommended. Blood urea nitrogen (BUN)/cr eatinine ratioOrdered By: Larry Morel on 10-31-2024 Urea nitrogen/Creatinine [Mass ratio] 21.9 mg/mg High 10-20 [facility] CBC W/Diff, Automatedon 10-04 Absolute Lymph 1.81 X10 3/uL Normal 0.83-4.51 [facility] Comment on above: Performed By: #### L 100.0100, L3890.6300, L501.9520, L506.1000, L500.4050, L501.9985, L501.1400, L501.9910 #### [facility] [address] [place], [address] Absolute Neut 3.4 X10 3/uL Normal 2.0-7.7 [facility] Comment on above: Performed By: #### L 100.0100, L3890.6300, L501.9520, L506.1000, L500.4050, L501.9985, L501.1400, L501.9910 #### [facility] [address] [place], [address] Basophils/100 WBC (Bld) 0.3 % Normal 0-1 [facility] Comment on above: Performed By: #### L 100.0100, L3890.6300, L501.9520, L506.1000, L500.4050, L501.9985, L501.1400, L501.9910 #### [facility] [address] [place], [address] Eosinophils/100 WBC (Bld) 6.5 % High 0-5 [facility] Comment on above: Performed By: #### L 100.0100, L3890.6300, L501.9520, L506.1000, L500.4050, L501.9985, L501.1400, L501.9910 #### [facility] [address] [place], [address] Erythrocyte distribution width (RBC) [Ratio] 12.6 % Normal 11.6-14.6 [facility] Comment on above: Performed By: #### L 100.0100, L3890.6300, L501.9520, L506.1000, L500.4050, L501.9985, L501.1400, L501.9910 #### [facility] [address] [place], [address] Hematocrit (Bld) [Volume fraction] 47.7 % Normal 40-54 [facility] Comment on above: Performed By: #### L 100.0100, L3890.6300, L501.9520, L506.1000, L500.4050, L501.9985, L501.1400, L501.9910 #### [facility] [address] [place], [address] Hemoglobin (Bld) [Mass/Vol] 16.2 g/dL Normal 13.0-16.5 [facility] Comment on above: Performed By: #### L 100.0100, L3890.6300, L501.9520, L506.1000, L500.4050, L501.9985, L501.1400, L501.9910 #### [facility] [address] [place], [address] IG% 0.200 Normal 0.0-0.9 [facility] Comment on above: Result Comment: IG% - Immature Granulocytes (promyelocytes, myelocytes and metamyelocytes) > 1% indicates that a LEFT SHIFT is Present. Performed By: #### L 100.0100, L3890.6300, L501.9520, L506.1000, L500.4050, L501.9985, L501.1400, L501.9910 #### [facility] [address] [facility] [place], [address] Lymphocytes/100 WBC (Bld) 29.4 % Normal 19-41 [facility] Comment on above: Performed By: #### L 100.0100, L3890.6300, L501.9520, L506.1000, L500.4050, L501.9985, L501.1400, L501.9910 #### [facility] [address] [place], [address] MCH (RBC) [Entitic mass] 31.8 pg Normal 27.0-32.0 [facility] Comment on above: Performed By: #### L 100.0100, L3890.6300, L501.9520, L506.1000, L500.4050, L501.9985, L501.1400, L501.9910 #### [facility] [address] [place], [address] MCHC (RBC) [Mass/Vol] 34.0 g/dL Normal 32-36 [facility] Comment on above: Performed By: #### L 100.0100, L3890.6300, L501.9520, L506.1000, L500.4050, L501.9985, L501.1400, L501.9910 #### [facility] [address] [place], [address] MCV (RBC) [Entitic vol] 93.5 fL Normal 80-94 [facility] Comment on above: Performed By: #### L 100.0100, L3890.6300, L501.9520, L506.1000, L500.4050, L501.9985, L501.1400, L501.9910 #### [facility] [address] [place], [address] Monocytes/100 WBC (Bld) 9.1 % Normal 0-10 [facility] Comment on above: Performed By: #### L 100.0100, L3890.6300, L501.9520, L506.1000, L500.4050, L501.9985, L501.1400, L501.9910 #### [facility] [address] [place], [address] Neutrophils/100 WBC (Bld) 54.5 % Normal 47-70 [facility] Comment on above: Performed By: #### L 100.0100, L3890.6300, L501.9520, L506.1000, L500.4050, L501.9985, L501.1400, L501.9910 #### [facility] [address] [place], [address] Nucleated RBC (Bld) [#/Vol] 0 10*3/uL Normal 0-5 [facility] Comment on above: Performed By: #### L 100.0100, L3890.6300, L501.9520, L506.1000, L500.4050, L501.9985, L501.1400, L501.9910 #### [facility] [address] [place], [address] Platelet mean volume (Bld) [Entitic vol] 10.7 fL Normal 6.2-12.0 [facility] Comment on above: Performed By: #### L 100.0100, L3890.6300, L501.9520, L506.1000, L500.4050, L501.9985, L501.1400, L501.9910 #### [facility] [address] [place], [address] Platelets (Bld) [#/Vol] 199 10*3/uL Normal 150-450 [facility] Comment on above: Performed By: #### L 100.0100, L3890.6300, L501.9520, L506.1000, L500.4050, L501.9985, L501.1400, L501.9910 #### [facility] [address] [place], [address] RBC (Bld) [#/Vol] 5.10 10*6/uL Normal 4.6-6.2 [facility] Comment on above: Performed By: #### L 100.0100, L3890.6300, L501.9520, L506.1000, L500.4050, L501.9985, L501.1400, L501.9910 #### [facility] [address] [place], [address] RDW SD 43.8 fl Normal 35.1-43.9 [facility] Comment on above: Performed By: #### L 100.0100, L3890.6300, L501.9520, L506.1000, L500.4050, L501.9985, L501.1400, L501.9910 #### [facility] [address] [place], [address] WBC (Bld) [#/Vol] 6.2 10*3/uL Normal 4.4-11.0 [facility] Comment on above: Performed By: #### L 100.0100, L3890.6300, L501.9520, L506.1000, L500.4050, L501.9985, L501.1400, L501.9910 #### [facility] [address] [place], [address] Carbon dioxide measurementOr dered By: Larry Morel on 10-31-2024 CO2 [Moles/Vol] 28.0 mmol/L 21.0-32.0 [facility] Chloride measurementOrdered By: Larry Morel on 10-31-2024 Chloride [Moles/Vol] 104 mmol/L 98-107 [facility] Comprehensive Metabolic Prof ilon 10-31-2024 Albumin [Mass/Vol] 3.9 g/dL Normal 3.2-5.0 [facility] Comment on above: Performed By: #### L 100.0100, L3890.6300, L501.9520, L506.1000, L500.4050, L501.9985, L501.1400, L501.9910 #### [facility] [address] [place], [address] Albumin/Globulin [Mass ratio] 1.1 {ratio} Normal 0.9-2.4 [facility] Comment on above: Performed By: #### L 100.0100, L3890.6300, L501.9520, L506.1000, L500.4050, L501.9985, L501.1400, L501.9910 #### [facility] [address] [place], [address] ALK P 86 U/L Normal 45-117 [facility] Comment on above: Performed By: #### L 100.0100, L3890.6300, L501.9520, L506.1000, L500.4050, L501.9985, L501.1400, L501.9910 #### [facility] [address] [place], [address] ALT [Catalytic activity/Vol] 27 U/L Normal 16-61 [facility] Comment on above: Performed By: #### L 100.0100, L3890.6300, L501.9520, L506.1000, L500.4050, L501.9985, L501.1400, L501.9910 #### [facility] [address] [place], [address] AST [Catalytic activity/Vol] 25 U/L Normal 15-37 [facility] Comment on above: Performed By: #### L 100.0100, L3890.6300, L501.9520, L506.1000, L500.4050, L501.9985, L501.1400, L501.9910 #### [facility] [address] [place], [address] Bilirubin [Mass/Vol] 0.60 mg/dL Normal 0.20-1.00 [facility] Comment on above: Result Comment: For patients on eltrombopag therapy, use of Dimension [place] TBIL is not recommended. Performed By: #### L 100.0100, L3890.6300, L501.9520, L506.1000, L500.4050, L501.9985, L501.1400, L501.9910 #### [facility] [address] [place], [address] BUN/CRE 21.9 RATIO High 10-20 [facility] Comment on above: Performed By: #### L 100.0100, L3890.6300, L501.9520, L506.1000, L500.4050, L501.9985, L501.1400, L501.9910 #### [facility] [address] [place], [address] CA,Total 9.3 mg/dL Normal 8.5-10.1 [facility] Comment on above: Performed By: #### L 100.0100, L3890.6300, L501.9520, L506.1000, L500.4050, L501.9985, L501.1400, L501.9910 #### [facility] [address] [place], [address] Chloride [Moles/Vol] 104 mmol/L Normal 98-107 [facility] Comment on above: Performed By: #### L 100.0100, L3890.6300, L501.9520, L506.1000, L500.4050, L501.9985, L501.1400, L501.9910 #### [facility] [address] [place], [address] CO2 [Moles/Vol] 28.0 mmol/L Normal 21.0-32.0 [facility] Comment on above: Performed By: #### L 100.0100, L3890.6300, L501.9520, L506.1000, L500.4050, L501.9985, L501.1400, L501.9910 #### [facility] [address] [place], [address] Creatinine [Mass/Vol] 0.87 mg/dL Normal 0.70-1.30 [facility] Comment on above: Result Comment: The validity of the calculated GFR GFRAA in patients over 70 years has not been determined. Clinical correlation is essential. Performed By: #### L 100.0100, L3890.6300, L501.9520, L506.1000, L500.4050, L501.9985, L501.1400, L501.9910 #### [facility] [address] [place], [address] EST GFR - AA 113 mL/min Normal >60 [facility] Comment on above: Result Comment: Afri can [place] Citizen GFR Calc Performed By: #### L 100.0100, L3890.6300, L501.9520, L506.1000, L500.4050, L501.9985, L501.1400, L501.9910 #### [facility] [address] [place], [address] GAP 6 Normal 5-15 [facility] Comment on above: Performed By: #### L 100.0100, L3890.6300, L501.9520, L506.1000, L500.4050, L501.9985, L501.1400, L501.9910 #### [facility] [address] [place], [address] GFR/1.73 sq M.predicted among non-blacks MDRD (S/P/Bld) [Vol rate/Area] 94 mL/min/{1.73_m2} Normal >60 [facility] Comment on above: Result Comment: Non- GFR Calc Performed By: #### L 100.0100, L3890.6300, L501.9520, L506.1000, L500.4050, L501.9985, L501.1400, L501.9910 #### [facility] [address] [place], [address] Globulin (S) [Mass/Vol] 3.7 g/dL Normal 2.2-4.2 [facility] Comment on above: Performed By: #### L 100.0100, L3890.6300, L501.9520, L506.1000, L500.4050, L501.9985, L501.1400, L501.9910 #### [facility] [address] [place], [address] Glucose [Mass/Vol] 91 mg/dL Normal 74-106 [facility] Comment on above: Performed By: #### L 100.0100, L3890.6300, L501.9520, L506.1000, L500.4050, L501.9985, L501.1400, L501.9910 #### [facility] [address] [place], [address] Potassium [Moles/Vol] 4.0 mmol/L Normal 3.5-5.1 [facility] Comment on above: Performed By: #### L 100.0100, L3890.6300, L501.9520, L506.1000, L500.4050, L501.9985, L501.1400, L501.9910 #### [facility] [address] [place], [address] Sodium [Moles/Vol] 138 mmol/L Normal 136-145 [facility] Comment on above: Performed By: #### L 100.0100, L3890.6300, L501.9520, L506.1000, L500.4050, L501.9985, L501.1400, L501.9910 #### [facility] [address] [place], [address] T PROT 7.6 g/dL Normal 6.4-8.2 [facility] Comment on above: Performed By: #### L 100.0100, L3890.6300, L501.9520, L506.1000, L500.4050, L501.9985, L501.1400, L501.9910 #### [facility] [address] [place], [address] Urea nitrogen [Mass/Vol] 19 mg/dL High 7-18 [facility] Comment on above: Performed By: #### L 100.0100, L3890.6300, L501.9520, L506.1000, L500.4050, L501.9985, L501.1400, L501.9910 #### [facility] [address] [place], [address] Eosinophil percentageOrdered By: Larry Morel on 10-31-2024 Eosinophils/100 WBC (Bld) 6.5 % High 0-5 [facility] Erythrocyte distribution wid th ratioOrdered By: Larry Morel on 10-31-2024 Erythrocyte distribution width (RBC) [Ratio] 12.6 % 11.6-14.6 [facility] Erythrocyte distribution wid th standard deviationOrdered By: Larry Morel on 10-31-2024 Erythrocyte distribution width (RBC) [Entitic vol] 43.8 fL 35.1-43.9 [facility] Estimated glomerular filtrat ion rate (GFR) AmericanOrdered By: Larry Morel on 10-31-2024 Estimated GFR (MDRD) Amer 113 mL/min >60 [facility] Comment on above: GFR Calc Glomerular filtration rate ( GFR) estimationOrdered By: Larry Morel on 10-31-2024 Estimated GFR (MDRD) Non-Af Amer 94 mL/min >60 [facility] Comment on above: Non- GFR Calc Glucose measurementOrdered B y: Larry Morel on 10-31-2024 Glucose [Mass/Vol] 91 mg/dL 74-106 [facility] Hematocrit Auto (Bld) [Volum e fraction]Ordered By: Larry Morel on 10-31-2024 Hematocrit (Bld) [Volume fraction] 47.7 % 40-54 [facility] Hemoglobin A1con 10-31-2024 HbA1c (Bld) [Mass fraction] 5.7 % High 3.8-5.6 [facility] Comment on above: Result Comment: Norm al < 5.7 % Prediabetic 5.7 - 6.4 % Diabetic >or= 6.5 % Please note range changes. Performed By: #### L 100.0100, L3890.6300, L501.9520, L506.1000, L500.4050, L501.9985, L501.1400, L501.9910 ####[facility] [id number] [place], [place], [id number] Hemoglobin A1c percentageOrd ered By: Larry Morel on 10-31-2024 HbA1c (Bld) [Mass fraction] 5.7 % High 3.8-5.6 [facility] Comment on above: Normal < 5.7 % Predi abetic 5.7 - 6.4 % Diabetic >or= 6.5 % Please note range changes. Hemoglobin measurementOrdere d By: Larry Morel on 10-31-2024 Hemoglobin (Bld) [Mass/Vol] 16.2 g/dL 13.0-16.5 [facility] Hepatitis C Antibodyon 10-31 Hepatitis C AB Non-Reactive Normal Nonreactive [facility] Comment on above: Result Comment: Non Reactive: < 0.8 Equivocal: >/= 0.8 to < 1.0 Reactive: >/= 1.0 The CDC requires that a reactive/equivocal HCV antibody result be sent out for confirmation. HCV Quant by PCR testing. Performed By: #### L 100.0100, L3890.6300, L501.9520, L506.1000, L500.4050, L501.9985, L501.1400, L501.9910 ####[facility] [id number] [place], [address] Hepatitis C virus antibody a ssayOrdered By: Larry Morel on 10-31-2024 Hepatitis C Antibody Non-Reactive Nonreactive [facility] Comment on above: Non Reactive: < 0.8 Equivocal: >/= 0.8 to < 1.0 Reactive: >/= 1.0The CDC requires that a reactive/equivocal HCV antibody result be sent out for confirmation. HCV Quant by PCR testing. Immature granulocytes/100 WB C Auto (Bld)Ordered By: Larry Morel on 10-31-2024 Immature granulocytes/100 WBC (Bld) 0.200 % 0.0-0.9 [facility] Comment on above: IG% - Immature Granu locytes (promyelocytes, myelocytes and metamyelocytes) > 1% indicates that a LEFT SHIFT is Present. Laboratory - Chemistry and C hemistry - challengeOrdered By: Larry Morel on 10-31-2024 AST [Catalytic activity/Vol] 25 U/L 15-37 [facility] Lymphocytes Auto (Unsp spec) [#/Vol]Ordered By: Larry Morel on 10-31-2024 Lymphocytes (Bld) [#/Vol] 1.81 10*3/uL 0.83-4.51 [facility] Lymphocytes/100 WBC Auto (Un sp spec)Ordered By: Larry Morel on 10-31-2024 Lymphocytes/100 WBC (Bld) 29.4 % 19-41 [facility] MCV (mean corpuscular volume ) determinationOrdered By: Larry Morel on 10-31-2024 MCV (RBC) [Entitic vol] 93.5 fL 80-94 [facility] Mean corpuscular hemoglobin (MCH) determinationOrdered By: Larry Morel on 10-31-2024 MCH (RBC) [Entitic mass] 31.8 pg 27.0-32.0 [facility] Mean corpuscular hemoglobin concentration (MCHC) determinationOrdered By: Larry Morel on 10-31-2024 MCHC (RBC) [Mass/Vol] 34.0 g/dL 32-36 [facility] Mean platelet volume determi nationOrdered By: Larry Morel on 10-31-2024 Platelet mean volume (Bld) [Entitic vol] 10.7 fL 6.2-12.0 [facility] Monocyte percentageOrdered B y: Larry Morel on 10-31-2024 Monocytes/100 WBC (Bld) 9.1 % 0-10 [facility] Neutrophil percentageOrdered By: Larry Morel on 10-31-2024 Neutrophils/100 WBC (Bld) 54.5 % 47-70 [facility] Nucleated red blood cell per centageOrdered By: Larry Morel on 10-31-2024 Nucleated RBC/100 WBC (Bld) [Ratio] 0 % 0-5 [facility] PSA,Total - Annual Screenon 10-31-2024 PSA,TOT SCREEN 0.90 ng/mL Normal 0.00-4.00 [facility] Comment on above: Result Comment: This test was performed using the TPSA assay method for the [employer] chemistry system. Values obtained with different assay methods cannot be used interchangably. When changing PSA assays in the course of monitoring a patient, additional sequential testing should be carried out to confirm baseline values. Performed By: #### L 100.0100, L3890.6300, L501.9520, L506.1000, L500.4050, L501.9985, L501.1400, L501.9910 ####[facility] [id number] [place], [address] Platelet countOrdered By: Coy Morel on 10-31-2024 Platelets (Bld) [#/Vol] 199 10*3/uL 150-450 [facility] Potassium measurementOrdered By: Larry Morel on 10-31-2024 Potassium [Moles/Vol] 4.0 mmol/L 3.5-5.1 [facility] RBC Auto (Bld) [#/Vol]Ordere d By: Larry Morel on 10-31-2024 RBC (Bld) [#/Vol] 5.10 10*6/uL 4.6-6.2 [facility] Screening prostate specific antigen (PSA) measurementOrdered By: Larry Morel on 10-31-2024 Prostate Specific Antigen Screen 0.90 ng/mL 0.00-4.00 [facility] Comment on above: This test was perfor med using the TPSA assay method for the[employer] chemistry system. Values obtained with differentassay methods cannot be used interchangably.When changing PSA assays in the course of monitoring apatient, additional sequential testing should be carriedout to confirm baseline values. Serum anion gap measurementO rdered By: Larry Morel 10-31-2024 Anion gap [Moles/Vol] 6 mmol/L 5-15 [facility] Serum globulin measurementOr dered By: Larry Morel 10-31-2024 Globulin (S) [Mass/Vol] 3.7 g/dL 2.2-4.2 [facility] Serum or plasma alanine hylton otransferase (ALT) measurementOrdered By: Larry Morel 10-31-2024 ALT [Catalytic activity/Vol] 27 U/L 16-61 [facility] Serum or plasma albumin spring urement (mass/volume)Ordered By: Larry Morel 10-31-2024 Albumin [Mass/Vol] 3.9 g/dL 3.2-5.0 [facility] Serum or plasma alkaline carlos manuel sphatase measurementOrdered By: Larry Morel 10-31-2024 ALP [Catalytic activity/Vol] 86 U/L 45-117 [facility] Serum or plasma calcium spring urement (mass/volume)Ordered By: Larry Morel 10-31-2024 Calcium [Mass/Vol] 9.3 mg/dL 8.5-10.1 [facility] Serum or plasma creatinine m easurement (mass/volume)Ordered By: Larry Morel 10-31-2024 Creatinine [Mass/Vol] 0.87 mg/dL 0.70-1.30 [facility] Comment on above: The validity of the calculated GFR & GFRAA in patients over 70 years has not been determined. Clinical correlation is essential. Serum or plasma urea nitroge n measurement (mass/volume)Ordered By: Larry Moerl on 10-31-2024 Urea nitrogen [Mass/Vol] 19 mg/dL High 7-18 [facility] Serum or plasma uric acid me asurement (mass/volume)Ordered By: Larry Morel on 10-31-2024 Urate [Mass/Vol] 5.6 mg/dL 3.5-7.2 [facility] Comment on above: The drugs N-Acetylcy steine and Metamizole may falsely depress this assay. Sodium levelOrdered By: Larry Morel on 10-31-2024 Sodium [Moles/Vol] 138 mmol/L 136-145 [facility] TSH QnOrdered By: Larry Morel o n 10-31-2024 Thyroid Stimulating Hormone (TSH) 2.480 uIU/mL 0.358-3.740 [facility] Thyroid Stim Hormone (TSH)on 10-31-2024 TSH 2.480 uIU/mL Normal 0.358-3.740 [facility] Comment on above: Performed By: #### L 100.0100, L3890.6300, L501.9520, L506.1000, L500.4050, L501.9985, L501.1400, L501.9910 ####[facility] [id number] [place], [address] Total proteinOrdered By: Larry Morel on 10-31-2024 Protein [Mass/Vol] 7.6 g/dL 6.4-8.2 [facility] Vitamin D,25 Hydroxyon 10-31 Vitamin D 25-OH 41.8 ng/mL Normal [facility] Comment on above: Result Comment: Jacinda min D 25(OH) Status Range Deficiency <20 ng/mL (50nmol/L) Insufficiency 20 - 30 ng/mL (50 - 75 nmol/L) Sufficiency 30 - 100 ng/mL (75 - 250 nmol/L) Toxicity >100 ng/mL (>250 nmol/L) Performed By: #### L 100.0100, L3890.6300, L501.9520, L506.1000, L500.4050, L501.9985, L501.1400, L501.9910 ####[facility] [id number] [place], [address] White blood cell (WBC) count Ordered By: Larry Morel on 10-31-2024 WBC (Bld) [#/Vol] 6.2 10*3/uL 4.4-11.0 [facility] Vital Signs Date Time Vital Sign Value Performing Clinician Benny lity 03-26-2025 14:50-0400 Body temperature 97.1 [degF] Dr. Larry Morel MD Work Phone: [facility] 03-26-2025 14:50-0400 Diastolic blood pressure 98 mm[Hg] Dr. Larry Morel MD Work Phone: [facility] 03-26-2025 14:50-0400 Heart rate 74 /min Dr. Larry Morel MD Work Phone: [facility] 03-26-2025 14:50-0400 Respiratory rate 18 /min Dr. Larry Morel MD Work Phone: [facility] 03-26-2025 14:50-0400 SaO2% (BldA) [Mass fraction] 98 % Dr. Larry Morel MD Work Phone: [facility] 03-26-2025 14:50-0400 Systolic blood pressure 126 mm[Hg] Dr. Larry Morel MD Work Phone: [facility] 03-26-2025 13:10-0400 Body height 185.[address] Larry Morel MD Work Phone: [facility] 03-26-2025 13:10-0400 Body mass index (BMI) [Ratio] 34 kg/m2 Dr. Larry Morel MD Work Phone: [facility] 03-26-2025 13:10-0400 Body weight [address] Larry Morel MD Work Phone: [facility] 01-04-2025 14:13-0400 Body temperature 97.7 [degF] Dr. Larry Morel MD Work Phone: [facility] 01-04-2025 14:13-0400 Body weight 124.[address] Larry Morel MD Work Phone: [facility] 01-04-2025 14:13-0400 Diastolic blood pressure 88 mm[Hg] Dr. Larry Morel MD Work Phone: [facility] 01-04-2025 14:13-0400 Heart rate 75 /min Dr. Larry Morel MD Work Phone: [phone](038)388-692585 [place] [address] 01-04-2025 14:13-0400 Respiratory rate 16 /min Dr. Larry Morel MD Work Phone: 3([phone] [place] [address] 01-04-2025 14:13-0400 SaO2% (BldA) [Mass fraction] 94 % Dr. Larry Morel MD Work Phone: [facility] 01-04-2025 14:13-0400 Systolic blood pressure 138 mm[Hg] Dr. Larry Morel MD Work Phone: [facility] 11-08-2024 09:14-0500 Body height 185.[address] Larry Morel MD Work Phone: [facility] 11-08-2024 09:14-0500 Body mass index (BMI) [Ratio] 36.8 kg/m2 Dr. Larry Morel MD Work Phone: [facility] 11-08-2024 09:14-0500 Body weight 126.[address] Larry Morel MD Work Phone: [facility] Encounters Encounter Date Encounter Type Care Provider Facility Start: 06-05-2025 End: 06-05-[address] Larry Morel MD Work Phone: -Laboratory Phy Office 3rd Flr Start: 06-05-2025 End: 06-05-[address] Larry Morel MD -Laboratory Phy Office 3rd Flr Start: 06-05-2025 End: 06-05-2025 ambulatory Larry Souleymane Adriel Facility:[facility] Start: 03-26-2025 Non-patient / Non-visit Vasyl Frie teto DO -[facility] Start: 03-26-2025 End: 03-26-2025 Admission to same day surgery center Vasyl Audrey DO -Endoscopy Work Phone: Start: 03-26-2025 End: 03-26-[address] Larry Morel MD Work Phone: [facility] Work Phone: Start: 01-04-2025 End: 01-04-2025 Patient encounter procedure Irlanda CASTILLO -[facility] Work Phone: Start: 01-04-2025 End: 01-04-2025 ambulatory Larry Morel Facility:[facility] Start: 12-03-2024 Non-patient / Non-visit Dr. Bryan brown MD -[facility] Start: 12-03-2024 End: 12-03-[address] Larry Morel MD Work Phone: [facility] Work Phone: Start: 12-03-2024 End: 12-03-[address] Larry Morel MD -Cardiovascular Services Work Phone: Start: 12-03-2024 End: 12-03-2024 ambulatory Larry Morel Facility:[facility] Start: 11-21-2024 End: 11-21-[address] Larry Morel MD -Cat Scan, [facility] Work Phone: Start: 11-21-2024 End: 11-21-2024 ambulatory Larry Morel Facility:[facility] Start: 11-07-2024 Non-patient / Non-visit Dr. Coy Morel MD Work Phone: -[facility] Work Phone: Start: 11-07-2024 ambulatory Larry Morel Facility:[facility] Start: 11-05-2024 End: 11-05-[address] Larry Morel MD -Pulmonary Services/Neurology Work Phone: Start: 11-05-2024 End: 11-05-2024 ambulatory Larry Morel Facility:[facility] Start: 10-31-2024 End: 10-31-[address] Larry Morel MD -Laboratory, Phy Office 3rd Flr Start: 10-31-2024 End: 10-31-2024 ambulatory Larry Morel Facility:[facility] Procedures Date Procedure Procedure Detail Performing Clinician Start: 06-05-2025 Vitamin D, 25-hydrox y measurement Dr. Larry Morel MD Work Phone: Comment on above: Vitamin D StatusDefi ciency: <20 ng/mL (50nmol/L)Insufficiency: 20-30 ng/mL (50-75 nmol/L)Sufficiency: 30-100 ng/mL (75-250 nmol/L)Toxicity: >100 ng/mL (>250 nmol/L) Start: 03-26-[address] Larry barrow MD Work Phone: Start: 11-21-[address] Larry barrow MD Work Phone: Plan of Treatment Date Care Activity Detail Author Start: 03-26-2025 Colonoscopy w/biopsy single/multiple COLONOSCOPY AND BIOPSY [facility] Start: 03-26-2025 Patient discharge [facility] Colonoscopy [facility] Doppler ultrasonogra phy of aorta [facility] Patient referral [facility] Work Phone: Payers Date Payer Category Payer Unknown [id number] 2024 Medicare [id number] 2024 Self-pay 2024 Unknown [id number] Unknown [id number] 2.16.8 [id number] Unknown [id number] 2.16.8 [id number] Unknown [id number] 2.16.8 [id number] Unknown [id number] 2.16.8 [id number] Unknown [id number] 2.16.8 [id number] Unknown [id number] 2.16.8 [id number] Unknown [id number] 2.16.8 [id number] Unknown [id number] 2.16.8 [id number] Unknown [id number] 2.16.8 [id number] Unknown [id number] 2.16.8 [id number] Unknown [id number] 2.16.8 [id number] Social History Date Type Detail Facility Start: 11-08-2024 End: 03-21-2025 Tobacco smoking status NHIS Never smoked tobacco (finding) [facility] Start: 12-14-2024 Sex Male (finding) [facility] Start: 1960 Sex Assigned At Male [facility] Goals Date Patient Goal Desired Activity /State Mental Status Date Assessment Result Facility 03-26-2025 Cognitive function Level Of Consciousness Sedated [facility] Work Phone: Clinical Notes 01-04-2025 to 03-26-2025 Note Date & Type Note Facility 03-26-2025 Consult note Note Date/Time March 26, 2025 1:39pm [facility] Medical Records Department [facility] [place] [address] [place] [address] Pre-Anesthesia Evaluation 03/26/25 1334 MR#: [id number] Acct: [id number] Name: HOMER LEWIS Rep #:[id number] : 1960 65 From: Saundra pantoja CRNA PCP: Dr. Larry Morel MD Status:REG S DC Y Race: C Location: [place] [address] ASA Classification* ASA Classification ASA Classification: 3 Assessment & Plan Anesthesia* Anesthesia Assessment Anesthesia Assessment: Discussed sedation and/or anesthesia options, risks, benefits, and alternatives with patient/parents/legal guardian/POA. Questions invited. The patient/parents/legal guardian/POA seems to understand and agrees to proceedwith anesthesia plan. Reviewed the physical assessment, medical history, allergy history and patient home medications list prior to surgery/procedure/anesthetic and documented any changes. Performed airway and anesthesia risk assessments. Anesthesia Type Anesthesia Type: MAC History Source History Obtained from:: Patient and Chart Anesthesia Focused Assessment* Temperature: 97.1 F Pulse Rate: 61 Blood Pressure: 136/82 Respiratory Rate: 18 Pulse Ox: 96 Oxygen Delivery Method: Room Air Airway Assessment Mouth opens: >3 cm Mallampati Score: I Teeth Condition: Intact and Implants (all intact) Neck Range of motion (ROM): Full ROM Labs Anesthesia Preop lab: CBC WBC 6.2 K/mm3 (4.4-11.0) 10/31/24 15:10/31/24 RBC 5.10 M/mm3 (4.6-6.2) 10/31/24 15:33 10/31/24 Hgb 16.2 g/dL (13.0-16.5) 10/31/24 15:33 10/31/24 Hct 47.7 % (40-54) 10/31/24 15:33 10/31/24 Plt Count 199 K/mm3 (150-450) 10/31/24 15:33 10/31/24 CHEMISTRY Potassium 4.0 mmol/L (3.5-5.1) 10/31/24 15:33 10/31/24 Sodium 138 mmol/L (136-145) 10/31/24 15:33 10/31/24 BUN 19 mg/dL (7-18) H 10/31/24 15:33 10/31/24 Creatinine 0.87 mg/dL (0.70-1.30) 10/31/24 15:33 10/31/24 Glucose 91 mg/dL (74-106) 10/31/24 15:33 10/31/24 TSH 2.480 uIU/mL (0.358-3.740) 10/31/24 15:33 10/04 06/27 COAG Pre-Assessment Diagnosis/Proposed Procedure Planned Operative Procedure(s): CSCOPE Anesthesia History 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 When Was Last Pacemaker Check QUESTION #4 FULL TEXT: You/Your Family Experience fever (hyperthermia) with Anesthesia Last Oral Intake Last Oral intake: Last Oral Intake NPO since 10:30 03/26/25 13:10 Meds taken in AM with sips of No 03/26/25 13:10 water? Meds patient instructed to take am of surgery PONV PONV - mine motor engineer: PONV - mine motor engineer Female No 03/21/25 15:12 HX of Motion Sickness No 03/21/25 15:12 HX of N/V After Surgery No 03/21/25 15:12 Non-Smoker Yes 03/21/25 15:12 Duration of Surgery greater No 03/21/25 15:12 than 60 minutes Number of Risk Factors 1 03/21/25 15:12 PONV Score Low Risk 03/21/25 15:12 Height & Weight Height & Weight: Anesthesia: Height & Weight Height 6 ft 1 in 03/26/25 13:10 Weight: 117 kg 03/26/25 13:10 Body Mass Index (BMI) 34.0 03/26/25 13:10 Respiratory Assessment Respiratory Assessment - mine motor engineer: Respiratory Tract Infection Hx - mine motor engineer Hx Respiratory Tract Infection No 03/21/25 15:12 STOP Sleep Apnea STOP Sleep Apnea - mine motor engineer: STOP Sleep Apnea - mine motor engineer Hx Hypertension No 03/21/25 15:12 Hx Sleep Apnea Yes 03/21/25 15:12 CPAP Yes 03/21/25 15:12 BIPAP No 03/21/25 15:12 Do you snore loudly (louder than talking or can be heard Do you often feel tired/ fatigued/ sleepy during daytime? Has anyone observed you stop breathing during sleep? STOP Results Positive 03/21/25 15:12 QUESTION #5 FULL TEXT : Do you snore loudly (louder than talking or can be heard through closed doors)? Tobacco Use History Tobacco Use History - mine motor engineer: Tobacco Use History - mine motor engineer Tobacco Use Smoking Status Never smoker 03/21/25 15:12 Hx Tobacco Use No 03/21/25 15:12 Years Smoking Packs Smoked per Day Smoking Cessation Date was within the last 15 years Hx Smoking Cessation Date Hx Smoking Cessation Counseling Hematologic Medial History Hematologic Hx - mine motor engineer: Hematologic Medical Hx - heel seat trimmer Hx of Blood Transfusion No 03/21/25 15:12 Hx of Transfusion in last 3 No 03/21/25 15:12 Months Date of Last Transfusion (if within last 3 months) Ever experience any problems No 03/21/25 15:12 with transfusion(s)? Specify any problems Hx of Preganancy in last 3 N/A 03/21/25 15:12 Months Nurse Filling Out Transfusion NBUCHER 03/21/25 15:12 & Questions: Date: 03/21/25 03/21/25 15:12 Time: 15:13 03/21/25 15:12 Patient unable to answer at this time (ie. confused, unrespo /Reproduction History /Reproductive History - mine motor engineer: /Reproductive Hx- mine motor engineer Hx Now No 03/21/25 15:12 Gestational Age (in weeks): EDC: Hx Hx Para Hx Section SAB No 03/21/25 15:12 Active Medications Active Medications: Current Medications Generic Name Dose Route Start Last Admin Trade Name Freq PRN Reason Stop Dose Admin Lactated Ringer's 1,000 mls @ 15 mls/hr 03/26/25 13:00 03/26/25 13:21 IV 15 mls/hr .Q48H SRINIVAS Administration PFSH Medical History Wears glasses Arthritis High cholesterol Marijuana use History of edema Non-smoker Iliac artery aneurysm AAA (abdominal aortic aneurysm) Gout Tetrahydrocannabinol (THC) use disorder, moderate, dependence Hyperlipidemia Type 2 diabetes mellitus Hx of colonic polyp Home Medications ?Medication ?Instructions ?Recorded ?Last Taken ?Type RSVPreF3 antigen-AS01E 0.5 ml IM ONCE 01/03/25 Unkn own History adjuvant(PF) 120 mcg/0.5 mL IM suspension, kit (Arexvy (PF)) amoxicillin 875 mg-potassium 1 tab PO Q12H 01/03/25 Un known History clavulanate 125 mg tablet phentermine 37.5 mg capsule 37.5 mg PO QDAY 01/03/25 U nknown History pneumo 21-montse conj-dip crm(PF) 0.5 0.5 ml IM ONCE 12/25 Unknown History mL IM syringe (Capvaxive) aspirin 81 mg tablet 81 mg PO DAILY 03/21/2503/03 History multivitamin (Daily Multi-Vitamin 1 tab PO DAILY 03/21 Unknown History tablet) Allergy/AdvReac Type Severity Reaction Status Date / Time No Known Allergies Allergy Verified 03/26/25 13:09 Family History Mother Breast cancer Diverticulitis Surgical History History of lateral meniscus repair of left knee History of ankle surgery History of oral surgery Hx of colonoscopy Social History household members: family current occupational status: retired Smoking Status: Never smoker alcohol intake: former substance use type: marijuana Review of Systems (Anesthesia) ROS Narrative System reviewed and no additional complaints, except as documented. 03/26/25 1339 <Electronically signed by Saundra smyth CRNA> Date _ Saundra Arita CRNA Cosigner Signature: Date CC: ~ Signed [facility] Work Phone: 1(963) 685-386206-24-2025 History and physical note Author Vasyl Ventura [facility] Note Date/Time March 26, 2025 1:14 pm [facility] Medical Records Department [address] [place] [address] History & Physical Exam 03/26/25 1311 MR#: [id number] Acct: [id number] Name: HOMER LEWIS Rep #:[id number] : 1960 65 From: Vasyl Ventura DO PCP: Dr. Larry Morel MD Status:REG S MO Location: [place] [address] HPI - General General Date of Admission: 03/26/25 Date of Service: 03/26/25 Chief Complaint: Screening colonoscopy HPI Narrative HOMER LEWIS, is a 65 M who presents today for screening colonoscopy. He had aortic duplex screening on 12/03/24 which demonstrated infrarenal AAA 3.5 cm, right iliac artery aneurysm 2.14 cm, and left iliac artery aneurysm 1.88cm. He denies any new/persistent abdominal, pelvic, groin, back, flank, or chest pain. He denies any claudication, nocturnal/rest pain in the lower extremities, or nonhealing leg ulcerations. He had a colonoscopy approximately 3 years ago for history of adenomatous polyps. He takes aspirin on a daily basis. His last dose was approximately 7 days ago. [facility] Medical History Wears glasses Arthritis High cholesterol Marijuana use History of edema Non-smoker Iliac artery aneurysm AAA (abdominal aortic aneurysm) Gout Tetrahydrocannabinol (THC) use disorder, moderate, dependence Hyperlipidemia Type 2 diabetes mellitus Hx of colonic polyp Home Medications ?Medication ?Instructions ?Recorded ?Last Taken ?Type RSVPreF3 antigen-AS01E 0.5 ml IM ONCE 01/03/25 Unkn own History adjuvant(PF) 120 mcg/0.5 mL IM suspension, kit (Arexvy (PF)) amoxicillin 875 mg-potassium 1 tab PO Q12H 01/03/25 Un known History clavulanate 125 mg tablet phentermine 37.5 mg capsule 37.5 mg PO QDAY 01/03/25 U nknown History pneumo 21-montse conj-dip crm(PF) 0.5 0.5 ml IM ONCE 12/25 Unknown History mL IM syringe (Capvaxive) aspirin 81 mg tablet 81 mg PO DAILY 03/21/2503/03 History multivitamin (Daily Multi-Vitamin 1 tab PO DAILY 03/21 Unknown History tablet) Allergy/AdvReac Type Severity Reaction Status Date / Time No Known Allergies Allergy Verified 03/26/25 13:09 Family History Mother Breast cancer Diverticulitis Surgical History History of lateral meniscus repair of left knee History of ankle surgery History of oral surgery Hx of colonoscopy Social History household members: family current occupational status: retired Smoking Status: Never smoker alcohol intake: former substance use type: marijuana ROS Constitutional Constitutional: Denies fatigue, fever(s), poor appetite, weight gain or weight loss Gastrointestinal Gastrointestinal: Denies belching, bloating, change in bowel habits, change in stool character, chewing difficulty, coffee ground emesis, constipation, cramping, diarrhea, dyspepsia, dysphagia, early satiety, excessive flatus, fecalincontinence, heartburn, hematemesis, hematochezia, hemorrhoids, loose stools, melena, nausea, odynophagia, rectal bleeding, tenesmus, vomiting or weight changes Physical Exam Const alert, oriented x3, no apparent distress and healthy appearing General Appearance: cooperative GI normal to inspection, nondistended, normoactive bowel sounds, soft to palpation,non-tender and non-distended Percussion: normal to percussion Rectal Exam: deferred Assessment & Plan Assessment/Plan (1) Encounter for screening for malignant neoplasm of colon: PLAN: 65-year-old comes in for surveillance colonoscopy. He will undergo colonoscopy today. He was explained alternatives, risk, benefits including not withstanding bleeding, infection, sepsis, perforation, need for brain surgery . He will have an ASA of 3. 03/26/25 1314 <Electronically signed by Vasyl Ventura DO> Cosigner Signature (if applicable): CC: Dr. Larry Morel MD; Vasyl Ventura DO~ Signed [facility] Work Phone: 1(367) 653-167506-24-2025 Evaluation note* Diagnosis Onset Date Resolution Status Admit Date Encounter for screening for malignant neoplasm of colon acute March 26, 2025 12:50pm [facility] Work Phone: 1(468) 270-398006-24-2025 Consult note [facility] Medical Records Department [address] [place] [address] Anesthesia Postop Eval I 03/26/25 1440 MR#: [id number] Acct: [id number] Name: HOMER LEWIS Rep #:[id number] : 1960 65 From: Ricky Powers PCP: Dr. Larry Morel MD Status:REG S DC Y Race: C Location: [place] [address] Anesthesia: Postop Eval I Current Vital Signs Temperature: 97.3 F Pulse Rate: 57 Blood Pressure: 110/70 Respiratory Rate: 16 Pulse Ox: 96 Oxygen Delivery Method: Room Air Assessment Airway patent: Yes Spontaneous unlabored respirations: Yes Mental status: Asleep nausea: No Vomiting: No Anesthesia Complication: No Fluid Hydration Crystalloid volume administer (ml): 600 Total IV fluid infused: 600 Progress Note Anesthesia document: Postop Eval 1 completed: Yes 03/26/25 1441 > Date _ Ricky Mcrae Signature: Date CC: ~ Signed [facility]06-24-2025 Procedure note [facility] Medical Records Department [address] [place] [address] Colonoscopy Report MR#: [id number] Acct: [id number] Name: HOMER LEWIS Rep #:[id number] : 1960 65 From: Vasyl Ventura DO PCP: Dr. Larry Morel MD Status:REG S DC Patient Name: Homer Lewis Procedure Date: 03/26/2025 2:03 PM Date of : 1960 Age: 65 Procedure: Colonoscopy Indications: High risk colon cancer surveillance: Personal history of colonic polyps Providers: Vasyl Ventura DO Referring MD: Larry Morel MD Medicines: Monitored Anesthesia Care Patient Profile: This is a 65 year old male. Refer to note in patient chart for documentation of history and physical. Last Colonoscopy: more than 3 years ago. Complications: No immediate complications. Procedure: Pre-Anesthesia Assessment: - Prior to the procedure, a History and Physical was performed, and patient medications and allergies were reviewed. The patient is competent. The risks and benefits of the procedure and the sedation options and risks were discussed with the patient. All questions were answered and informed consent was obtained. Patient identification and proposed procedure were verified in the pre-procedure area. Mental Status Examination: alert and oriented. Airway Examination: normal oropharyngeal airway and neck mobility. Respiratory Examination: clear to auscultation. CV Examination: normal. Prophylactic Antibiotics: The patient does not require prophylactic antibiotics. Prior Anticoagulants: The patient has taken no anticoagulant or antiplatelet agents except for NSAID medication. ASA Grade Assessment: II - A patient with mild systemic disease. After reviewing the risks and benefits, the patient was deemed in satisfactory condition to undergo the procedure. The anesthesia plan was to use monitored anesthesia care (MAC). Immediately prior to administration of medications, the patient was re-assessed for adequacy to receive sedatives. The heart rate, respiratory rate, oxygen saturations, blood pressure, adequacy of pulmonary ventilation, and response to care were monitored throughout the procedure. The physical status of the patient was re-assessed after the procedure. After I obtained informed consent, the scope was passed under direct vision. Throughout the procedure, the patient's blood pressure, pulse, and oxygen saturations were monitored continuously. The Colonoscope was introduced through the anus and advanced to the cecum, identified by appendiceal orifice and ileocecal valve. The colonoscopy was performed without difficulty. The patient tolerated the procedure well. The quality of the bowel preparation was adequate. The ileocecal valve, appendiceal orifice, and rectum were photographed. Scope In: 2:12:25 PM Scope Withdrawal Time 0 hours 12 minutes 46 seconds Scope Out: 2:29:47 PM Total Procedure Duration Time 0 hours 17 minutes 22 seconds Findings: The perianal and digital rectal examinations were normal. Three sessile polyps were found in the sigmoid colon. The polyps were 6 mm in size. These polyps were removed with a jumbo cold forceps. Resection and retrieval were complete. Verification of patient identification for the specimen was done. Estimated blood loss was minimal. Multiple small and large-mouthed diverticula were found in the recto-sigmoid colon and sigmoid colon. The exam was otherwise without abnormality on direct and retroflexion views. Impression: - Three 6 mm polyps in the sigmoid colon, removed with a jumbo cold forceps. Resected and retrieved. - Diverticulosis in the recto-sigmoid colon and in the sigmoid colon. - The examination was otherwise normal on direct and retroflexion views. Recommendation: - Discharge patient to home. - Resume previous diet. - Continue present medications. - Await pathology results. - Repeat colonoscopy in 5 years for surveillance. Procedure Code(s): --- Professional --- 72955, Colonoscopy, flexible; with biopsy, single or multiple CPT copyright 2021 [employer] [employer]. All rights reserved. The codes documented in this report are preliminary and upon injection mold technician review may be revised to meet current compliance requirements. Vasyl Ventura DO 03/26/2025 2:33:21 PM This report has been signed electronically. Number of Addenda: 0 Note Initiated On: 03/26/2025 2:03 PM 03/26/25 1433 Date _ Vasyl Herbert Signature: Date (if indicated) CC: Dr. Larry Morel MD; Vasyl Ventura DO ~ Date Dictated: 03/26/25 1403 Date Transcribed: Sports Instructor: RAFAEL Signed [facility]06-24-2025 Procedure note [facility] Medical Records Department [address] [place] [address] Operative Report - CC Letter MR#: [id number] Acct: [id number] Name: HOMER LEWIS Rep #:[id number] : 1960 65 From: Vasyl Ventura DO PCP: Dr. Larry Morel MD Status:REG S DC 03/26/2025 Larry Morel MD [address] [place] [address] Re : Colonoscopy procedure for Homer Lewis Dear Dr. Morel This procedure was performed on Wednesday, March 26, 2025. My impressions and recommendations are as follows: Impressions : - Three 6 mm polyps in the sigmoid colon, removed with a jumbo cold forceps. Resected and retrieved. - Diverticulosis in the recto-sigmoid colon and in the sigmoid colon. - The examination was otherwise normal on direct and retroflexion views. Recommendations : - Discharge patient to home. - Resume previous diet. - Continue present medications. - Await pathology results. - Repeat colonoscopy in 5 years for surveillance. My findings are described in the full procedure note, which is enclosed. If I can be of further assistance, please feel free to contact me at . Sincerely, Vasyl Ventura DO 03/26/2025 2:33:21 PM This report has been signed electronically. 03/26/25 1433 Date _ Vasyl Ventura DO Cosigner Signature: Date (if indicated) CC: Dr. Larry Morel MD; Vasyl Ventura DO ~ Date Dictated: 03/26/25 1403 Date Transcribed: Sports Instructor: RF Signed [facility]06-24-2025 Consult note [facility] Medical Records Department [address] [place] [address] Pre-Anesthesia Evaluation 03/26/25 1334 MR#: [id number] Acct: [id number] Name: HOMER LEWIS Rep #:[id number] : 1960 65 From: Saundra pantoja CRNA PCP: Dr. Larry Morel MD Status:REG S DC Y Race: C Location: [place] [address] ASA Classification* ASA Classification ASA Classification: 3 Assessment & Plan Anesthesia* Anesthesia Assessment Anesthesia Assessment: Discussed sedation and/or anesthesia options, risks, benefits, and alternatives with patient/parents/legal guardian/POA. Questions invited. The patient/parents/legal guardian/POA seems to understand and agrees to proceedwith anesthesia plan. Reviewed the physical assessment, medical history, allergy history and patient home medications list prior to surgery/procedure/anesthetic and documented any changes. Performed airway and anesthesia risk assessments. Anesthesia Type Anesthesia Type: MAC History Source History Obtained from:: Patient and Chart Anesthesia Focused Assessment* Temperature: 97.1 F Pulse Rate: 61 Blood Pressure: 136/82 Respiratory Rate: 18 Pulse Ox: 96 Oxygen Delivery Method: Room Air Airway Assessment Mouth opens: >3 cm Mallampati Score: I Teeth Condition: Intact and Implants (all intact) Neck Range of motion (ROM): Full ROM Labs Anesthesia Preop lab: CBC WBC 6.2 K/mm3 (4.4-11.0) 10/31/24 15:33 10/31/24 RBC 5.10 M/mm3 (4.6-6.2) 10/31/24 15:33 10/31/24 Hgb 16.2 g/dL (13.0-16.5) 10/31/24 15:33 10/31/24 Hct 47.7 % (40-54) 10/31/24 15:33 10/31/24 Plt Count 199 K/mm3 (150-450) 10/31/24 15:33 10/31/24 CHEMISTRY Potassium 4.0 mmol/L (3.5-5.1) 10/31/24 15:33 10/31/24 Sodium 138 mmol/L (136-145) 10/31/24 15:33 10/31/24 BUN 19 mg/dL (7-18) H 10/31/24 15:33 10/31/24 Creatinine 0.87 mg/dL (0.70-1.30) 10/31/24 15:33 10/31/24 Glucose 91 mg/dL (74-106) 10/31/24 15:33 10/31/24 TSH 2.480 uIU/mL (0.358-3.740) 10/31/24 15:33 10/04 06/27 COAG Pre-Assessment Diagnosis/Proposed Procedure Planned Operative Procedure(s): CSCOPE Anesthesia History 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 When Was Last Pacemaker Check QUESTION #4 FULL TEXT: You/Your Family Experience fever (hyperthermia) with Anesthesia Last Oral Intake Last Oral intake: Last Oral Intake NPO since 10:30 03/26/25 13:10 Meds taken in AM with sips of No 03/26/25 13:10 water? Meds patient instructed to take am of surgery PONV PONV - mine motor engineer: PONV - mine motor engineer Female No 03/21/25 15:12 HX of Motion Sickness No 03/21/25 15:12 HX of N/V After Surgery No 03/21/25 15:12 Non-Smoker Yes 03/21/25 15:12 Duration of Surgery greater No 03/21/25 15:12 than 60 minutes Number of Risk Factors 1 03/21/25 15:12 PONV Score Low Risk 03/21/25 15:12 Height & Weight Height & Weight: Anesthesia: Height & Weight Height 6 ft 1 in 03/26/25 13:10 Weight: 117 kg 03/26/25 13:10 Body Mass Index (BMI) 34.0 03/26/25 13:10 Respiratory Assessment Respiratory Assessment - mine motor engineer: Respiratory Tract Infection Hx - mine motor engineer Hx Respiratory Tract Infection No 03/21/25 15:12 STOP Sleep Apnea STOP Sleep Apnea - mine motor engineer: STOP Sleep Apnea - mine motor engineer Hx Hypertension No 03/21/25 15:12 Hx Sleep Apnea Yes 03/21/25 15:12 CPAP Yes 03/21/25 15:12 BIPAP No 03/21/25 15:12 Do you snore loudly (louder than talking or can be heard Do you often feel tired/ fatigued/ sleepy during daytime? Has anyone observed you stop breathing during sleep? STOP Results Positive 03/21/25 15:12 QUESTION #5 FULL TEXT : Do you snore loudly (louder than talking or can be heard through closeddoors)? Tobacco Use History Tobacco Use History - mine motor engineer: Tobacco Use History - mine motor engineer Tobacco Use Smoking Status Never smoker 03/21/25 15:12 Hx Tobacco Use No 03/21/25 15:12 Years Smoking Packs Smoked per Day Smoking Cessation Date was within the last 15 years Hx Smoking Cessation Date Hx Smoking Cessation Counseling Hematologic Medial History Hematologic Hx - mine motor engineer: Hematologic Medical Hx - heel seat trimmer Hx of Blood Transfusion No 03/21/25 15:12 Hx of Transfusion in last 3 No 03/21/25 15:12 Months Date of Last Transfusion (if within last 3 months) Ever experience any problems No 03/21/25 15:12 with transfusion(s)? Specify any problems Hx of Preganancy in last 3 N/A 03/21/25 15:12 Months Nurse Filling Out Transfusion NBUCHER 03/21/25 15:12 & Questions: Date: 03/21/25 03/21/25 15:12 Time: 15:13 03/21/25 15:12 Patient unable to answer at this time (ie. confused, unrespo /Reproduction History /Reproductive History - mine motor engineer: /Reproductive Hx- mine motor engineer Hx Now No 03/21/25 15:12 Gestational Age (in weeks): EDC: Hx Hx Para Hx Section SAB No 03/21/25 15:12 Active Medications Active Medications: Current Medications Generic Name Dose Route Start Last Admin Trade Name Freq PRN Reason Stop Dose Admin Lactated Ringer's 1,000 mls @ 15 mls/hr 03/26/25 13:00 03/26/25 13:21 IV 15 mls/hr .Q48H SRINIVAS Administration PFSH Medical History Wears glasses Arthritis High cholesterol Marijuana use History of edema Non-smoker Iliac artery aneurysm AAA (abdominal aortic aneurysm) Gout Tetrahydrocannabinol (THC) use disorder, moderate, dependence Hyperlipidemia Type 2 diabetes mellitus Hx of colonic polyp Home Medications ?Medication ?Instructions ?Recorded ?Last Taken ?Type RSVPreF3 antigen-AS01E 0.5 ml IM ONCE 01/03/25 Unkn own History adjuvant(PF) 120 mcg/0.5 mL IM suspension, kit (Arexvy (PF)) amoxicillin 875 mg-potassium 1 tab PO Q12H 01/03/25 Un known History clavulanate 125 mg tablet phentermine 37.5 mg capsule 37.5 mg PO QDAY 01/03/25 U nknown History pneumo 21-montse conj-dip crm(PF) 0.5 0.5 ml IM ONCE 12/25 Unknown History mL IM syringe (Capvaxive) aspirin 81 mg tablet 81 mg PO DAILY 03/21/2503/03 History multivitamin (Daily Multi-Vitamin 1 tab PO DAILY 03/21 Unknown History tablet) Allergy/AdvReac Type Severity Reaction Status Date / Time No Known Allergies Allergy Verified 03/26/25 13:09 Family History Mother Breast cancer Diverticulitis Surgical History History of lateral meniscus repair of left knee History of ankle surgery History of oral surgery Hx of colonoscopy Social History household members: family current occupational status: retired Smoking Status: Never smoker alcohol intake: former substance use type: marijuana Review of Systems (Anesthesia) ROS Narrative System reviewed and no additional complaints, except as documented. 03/26/25 1339 nski [employer]> Date _ Saundrarebeka Arita HANNAH Cosigner Signature: Date CC: ~ Signed [facility]06-24-2025 History and physical note [facility] Medical Records Department [address] [place] [address] History & Physical Exam 03/26/25 1311 MR#: [id number] Acct: [id number] Name: HOMER LEWIS Rep #:[id number] : 1960 65 From: Vasyl Ventura DO PCP: Dr. Larry Morel MD Status:REG S MO Location: [place] [address] HPI - General General Date of Admission: 03/26/25 Date of Service: 03/26/25 Chief Complaint: Screening colonoscopy HPI Narrative HOMER LEWIS, is a 65 M who presents today for screening colonoscopy. He had aortic duplex screeningon 12/03/24 which demonstrated infrarenal AAA 3.5 cm, right iliac artery aneurysm 2.14 cm, and left iliac artery aneurysm 1.88cm. He denies any new/persistent abdominal, pelvic, groin, back, flank, or chest pain. He denies any claudication, nocturnal/rest pain in the lower extremities, or nonhealing leg ulcerations. He had a colonoscopy approximately 3 years ago for history of adenomatous polyps. He takes aspirin on a daily basis. His last dose was approximately 7 days ago. [facility] Medical History Wears glasses Arthritis High cholesterol Marijuana use History of edema Non-smoker Iliac artery aneurysm AAA (abdominal aortic aneurysm) Gout Tetrahydrocannabinol (THC) use disorder, moderate, dependence Hyperlipidemia Type 2 diabetes mellitus Hx of colonic polyp Home Medications ?Medication ?Instructions ?Recorded ?Last Taken ?Type RSVPreF3 antigen-AS01E 0.5 ml IM ONCE 01/03/25 Unkn own History adjuvant(PF) 120 mcg/0.5 mL IM suspension, kit (Arexvy (PF)) amoxicillin 875 mg-potassium 1 tab PO Q12H 01/03/25 Un known History clavulanate 125 mg tablet phentermine 37.5 mg capsule 37.5 mg PO QDAY 01/03/25 U nknown History pneumo 21-montse conj-dip crm(PF) 0.5 0.5 ml IM ONCE 12/25 Unknown History mL IM syringe (Capvaxive) aspirin 81 mg tablet 81 mg PO DAILY 03/21/2503/03 History multivitamin (Daily Multi-Vitamin 1 tab PO DAILY 03/21 Unknown History tablet) Allergy/AdvReac Type Severity Reaction Status Date / Time No Known Allergies Allergy Verified 03/26/25 13:09 Family History Mother Breast cancer Diverticulitis Surgical History History of lateral meniscus repair of left knee History of ankle surgery History of oral surgery Hx of colonoscopy Social History household members: family current occupational status: retired Smoking Status: Never smoker alcohol intake: former substance use type: marijuana ROS Constitutional Constitutional: Denies fatigue, fever(s), poor appetite, weight gain or weight loss Gastrointestinal Gastrointestinal: Denies belching, bloating, change in bowel habits, change in stool character, chewing difficulty, coffee ground emesis, constipation, cramping, diarrhea, dyspepsia, dysphagia, earlysatiety, excessive flatus, fecalincontinence, heartburn, hematemesis, hematochezia, hemorrhoids, loose stools, melena, nausea, odynophagia, rectal bleeding, tenesmus, vomiting or weight changes Physical Exam Const alert, oriented x3, no apparent distress and healthy appearing General Appearance: cooperative GI normal to inspection, nondistended, normoactive bowel sounds, soft to palpation,non-tender and non-distended Percussion: normal to percussion Rectal Exam: deferred Assessment & Plan Assessment/Plan (1) Encounter for screening for malignant neoplasm of colon: PLAN: 65-year-old comes in for surveillance colonoscopy. He will undergo colonoscopy today. He was explained alternatives, risk, benefits including not withstanding bleeding, infection, sepsis, perforation, need for brain surgery . He will have an ASA of 3. 03/26/25 1314 Cosigner Signature (if applicable): CC: Dr. Larry Morel MD; Vasyl Ventura DO~ Signed [facility]06-24-2025 [facility] Medical Records Department [address] [place] [address] History Physical Exam 03/26/25 1311 MR#: [id number] Acct: [id number] Name: HOMER LEWIS Rep #: [id number] : 1960 65 From: Vasyl Ventura DO PCP: Dr. Larry Morel MD Status:[facility] Location: [place] [address] HPI - General General Date of Admission: 03/26/25 Date of Service: 03/26/25 Chief Complaint: Screening colonoscopy HPI Narrative HOMER LEWIS, is a 65 M who presents today for screening colonoscopy. He had aortic duplex screening on 12/03/24 which demonstrated infrarenal AAA 3.5 cm, right iliac artery aneurysm 2.14 cm, and left iliac artery aneurysm 1.88cm. He denies any new/persistent abdominal, pelvic, groin, back, flank, or chest pain. He denies any claudication, nocturnal/rest pain in the lower extremities, or nonhealing leg ulcerations. He had a colonoscopy approximately 3 years ago for history of adenomatous polyps. He takes aspirin on a daily basis. His last dose was approximately 7 days ago. [facility] Medical History Wears glasses Arthritis High cholesterol Marijuana use History of edema Non-smoker Iliac artery aneurysm AAA (abdominal aortic aneurysm) Gout Tetrahydrocannabinol (THC) use disorder, moderate, dependence Hyperlipidemia Type 2 diabetes mellitus Hx of colonic polyp Home Medications ???Medication ???Instructions ???Recorded ???Last Taken ???Type RSVPreF3 antigen-AS01E 0.5 ml IM ONCE 01/03/25 Unknown Hi story adjuvant(PF) 120 mcg/0.5 mL IM suspension, kit (Arexvy (PF)) amoxicillin 875 mg-potassium 1 tab PO Q12H 01/03/25 Unknown His tory clavulanate 125 mg tablet phentermine 37.5 mg capsule 37.5 mg PO QDAY 01/03/25 Unknown H istory pneumo 21-montse conj-dip crm(PF) 0.5 0.5 ml IM ONCE 01/03/25 Unknown History mL IM syringe (Capvaxive) aspirin 81 mg tablet 81 mg PO DAILY 03/21/25 03/19/25 H istory multivitamin (Daily Multi-Vitamin 1 tab PO DAILY 03/21/25 Unknown H istory tablet) Allergy/AdvReac Type Severity Reaction Status Date / Time No Known Allergies Allergy Verified 03/26/25 13:09 Family History Mother Breast cancer Diverticulitis Surgical History History of lateral meniscus repair of left knee History of ankle surgery History of oral surgery Hx of colonoscopy Social History household members: family current occupational status: retired Smoking Status: Never smoker alcohol intake: former substance use type: marijuana ROS Constitutional Constitutional: Denies fatigue, fever(s), poor appetite, weight gain or weight loss Gastrointestinal Gastrointestinal: Denies belching, bloating, change in bowel habits, change in stool character, chewing difficulty, coffee ground emesis, constipation, cramping, diarrhea, dyspepsia, dysphagia, early satiety, excessive flatus, fecal incontinence, heartburn, hematemesis, hematochezia, hemorrhoids, loose stools, melena, nausea, odynophagia, rectal bleeding, tenesmus, vomiting or weight changes Physical Exam Const alert, oriented x3, no apparent distress and healthy appearing General Appearance: cooperative GI normal to inspection, nondistended, normoactive bowel sounds, soft to palpation, non-tender and non- distended Percussion: normal to percussion Rectal Exam: deferred Assessment Plan Assessment/Plan (1) Encounter for screening for malignant neoplasm of colon: PLAN: 65-year-old comes in for surveillance colonoscopy. He will undergo colonoscopy today. He was explained alternatives, risk, benefits including not withstanding bleeding, infection, sepsis, perforation, need for brain surgery . He will have an ASA of 3. 03/26/25 1314 Cosigner Signature (if applicable): CC: Dr. Larry Morel MD; Vasyl Ventura, DO [facility]* Diagnosis Onset Date Resolution Status Admit Date Aneurysm of left iliac artery acute January 04, 2025 1:26pm Aneurysm of right iliac artery acute January 04, 2025 1:26pm Infrarenal abdominal aortic aneurysm (AAA) without rupture acute A pril 2024 1:26pm Encounter for screening for malignant neoplasm of colon acute March 26, 2025 12:50pm [facility] Work Phone: Consult note Author Ricky Powers [facility] Note Date/Time March 26, 2025 2:41 pm [facility] Medical Records Department [address] [place] [address] Anesthesia Postop Eval I 03/26/25 1440 MR#: [id number] Acct: [id number] Name: HOMER LEWIS Rep #:[id number] : 1960 65 From: Ricky Powers PCP: Dr. Larry Morel MD Status:REG S DC Y Race: C Location: [place] [address] Anesthesia: Postop Eval I Current Vital Signs Temperature: 97.3 F Pulse Rate: 57 Blood Pressure: 110/70 Respiratory Rate: 16 Pulse Ox: 96 Oxygen Delivery Method: Room Air Assessment Airway patent: Yes Spontaneous unlabored respirations: Yes Mental status: Asleep nausea: No Vomiting: No Anesthesia Complication: No Fluid Hydration Crystalloid volume administer (ml): 600 Total IV fluid infused: 600 Progress Note Anesthesia document: Postop Eval 1 completed: Yes 03/26/25 1441 <Electronically signed by Ricky Powers > Date _ Ricky Martinezigner Signature: Date CC: ~ Signed [facility] Work Phone: Evaluation noteNo assessment information available [facility] Work Phone: Reason for referral (narrative)No reason for referral information [facility] Work Phone: Chief Complaint and Reason for Visit Chief Complaint Admit Date SOB November 05, 2024 1 2:55pm Amb Documentation November 07, 2024 1 1:08am Nicotine dependence, cigarettes, uncompl icated November 21, 2024 2:04pm AAA December 03, 2024 8:58 am Chief Complaint Admit Date AAA December 03, 2024 8:58 am AAA January 04, 2025 1:26 pm Reason for Visit Admit Date Aneurysm of left iliac artery January 04, 2025 1:26pm Aneurysm of right iliac artery January 1:26pm Infrarenal abdominal aortic aneurysm (AA A) without rupture January 04, 2025 1:26pm Encounter for screening for malignant ne oplasm of colon March 26, 2025 12:50pm Reason for Visit Admit Date Encounter for screening for malignant ne oplasm of colon March 26, 2025 12:50pm Family History No Family History Records Found Relationship Condition Age at Onset Recorded Date/T des[place] mother Malignant neoplasm of breast Unknown Diverticulitis Unknown Advance Directives No Advanced Directives Records Found Advance Directive Response Recorded Date/ Time Do you have a Healthcare Power of Supervisor Inspection And Testing? No March 21, 2025 3:12pm Summary Purpose Additional Source Comments Care Teams (unrecognized sec tion and content) Team Status: Active Member Role Status Dates Dr. Larry Morel MD Primary Care Provider Active Team Status: Inactive Member Role Status Dates Dr. Larry Morel MD Primary Care Provider Active Start: October 31, 2024 End: October 31, 2024 Dr. Larry Morel MD Attending Provider Active Start: October 31, 2024 End: October 31, 2024 Team Status: Inactive Member Role Status Dates Dr. Larry Morel MD Primary Care Provider Active Start: November 05, 2024 End: November 05, 2024 Dr. Larry Morel MD Attending Provider Active Start: November 05, 2024 End: November 05, 2024 Dr. Larry Morel MD Referring Provider Active Start: November 05, 2024 End: November 05, 2024 Team Status: Active Member Role Status Dates Dr. Larry Morel MD Primary Care Provider Active Start: November 07, 2024 Radha Mick Attending Provider Active Start: 2024 Team Status: Inactive Member Role Status Dates Dr. Larry Morel MD Primary Care Provider Active Start: November 21, 2024 End: November 21, 2024 Dr. Larry Morel MD Attending Provider Active Start: November 21, 2024 End: November 21, 2024 Dr. Larry Morel MD Referring Provider Active Start: November 21, 2024 End: November 21, 2024 Team Status: Inactive Member Role Status Dates Dr. Larry Morel MD Primary Care Provider Active Start: December 03, 2024 End: December 03, 2024 Dr. Larry Morel MD Attending Provider Active Start: December 03, 2024 End: December 03, 2024 Dr. Larry Morel MD Referring Provider Active Start: December 03, 2024 End: December 03, 2024 Team Status: Active Member Role Status Dates Dr. Larry Morel MD Primary Care Provider Active Start: December 03, 2024 Dr. Bryan Valdes MD Attending Provider Active S tart: December 03, 2024 Team Status: Inactive Member Role Status Dates Dr. Larry Morel MD Primary Care Provider Active Start: January 04, 2025 End: January 04, 2025 Dr. Larry Morel MD Referring Provider Active Start: January 04, 2025 End: January 04, 2025 JONATHAN Whitaker Attending Provider Active Star t: January 04, 2025 End: January 04, 2025 Team Status: Inactive Member Role Status Dates Dr. Larry Morel MD Primary Care Provider Active Start: March 26, 2025 End: March 26, 2025 Dr. Larry Morel MD Referring Provider Active Start: March 26, 2025 End: March 26, 2025 Dr. Vasyl Ventura DO Attending Provider Active Start: March 26, 2025 End: March 26, 2025 Team Status: Active Member Role Status Dates Dr. Larry Morel MD Primary Care Provider Active Start: March 26, 2025 Dr. Larry Morel MD Referring Provider Active Start: March 26, 2025 Dr. Vasyl Ventura DO Attending Provider Active Start: March 26, 2025 Dr. Vasyl Ventura DO Other Provider Active St art: March 26, 2025 Team Status: Active Member Role/Relationship Status Dates Dr. Larry Morel MD Primary Care Provider Active Team Status: Inactive Member Role/Relationship Status Dates Dr. Larry Morel MD Primary Care Provider Active Start: March 26, 2025 End: March 26, 2025 Dr. Larry Morel MD Referring Provider Active Start: March 26, 2025 End: March 26, 2025 Dr. Vasyl Ventura DO Attending Provider Active Start: March 26, 2025 End: March 26, 2025 Team Status: Active Member Role/Relationship Status Dates Dr. Larry Morel MD Primary Care Provider Active Start: March 26, 2025 Dr. Larry Morel MD Referring Provider Active Start: March 26, 2025 Dr. Vasyl Ventura DO Attending Provider Active Start: March 26, 2025 Dr. Vasyl Ventura DO Other Provider Active St art: March 26, 2025 Team Status: Inactive Member Role/Relationship Status Dates Dr. Larry Morel MD Primary Care Provider Active Start: June 05, 2025 End: June 05, 2025 Dr. Larry Morel MD Attending Provider Active Start: June 05, 2025 End: June 05, 2025 Goals (unrecognized section and content) Goals may be documented in a n alternate section (unrecognized sect ion and content) No Status Records Found INFORMATION SOURCE (unrecogn ized section and content) DATE CREATED AUTHOR 06/14/2025 [facility] FOR RECORDS PERTAINING TO PATIENTS WHO ARE OR HAVE BEEN ENROLLED IN A CHEMICAL DEPENDENCY/SUBSTANCEABUSE PROGRAM, SOME INFORMATION MAY BE OMITTED. This clinical summary was aggregated from multiple sources. Caution should be exercised in using it in the provision of clinical care. This summary normalizes information from multiple sources, and as a consequence, information in this document may materially change the coding, format and clinical context of patient data. In addition, data may be omitted in some cases. CLINICAL DECISIONS SHOULD BE BASED ON THE PRIMARY CLINICAL RECORDS. [employer] provides no warranty or guarantee of the accuracy or completeness of information in this document.
== END | disposition home or self-care (01) ==
LOC: LABSPEC 06:54
PROVIDERS: PCP Family Medicine Geriatric Medicine; Referring Provider Surgery Plastic and Reconstructive Surgery; Visit Provider Surgery Plastic and Reconstructive Surgery
DX: C44.311 Basal cell carcinoma of skin of nose (principal)
CPT/HCPCS: 88305